=== PATIENT | male | born 1935 | race Caucasian/White ===

== ENCOUNTER 2020-06-07 13:44 | Outpatient (CLI) | payer MEDICARE, SELFPAY ==
--- NOTE | 2020-06-07 13:50 | MR_ITS ---
WS: [id number] MRI BRAIN WITH AND WITHOUT CONTRAST HISTORY: PITUITARY MACROADENOMA COMPARISON: 09/18/2016 TECHNIQUE: Multiplanar imaging performed through the brain with Prohance 16 ml's IV. No acute infarct. Scattered periventricular white matter signal abnormalities and more confluent natalia ventricular white matter signal abnormalities. No acute infarct. No hemorrhage. No susceptibility artifacts or prior lacunar infarcts. Mild enlargement of the ventricles on the basis of atrophy. There is a heterogeneously enhancing soft tissue mass which has been previously described arising fro m the pituitary gland and sella turcica. Heterogeneously enhancing mass extends 2.2 cm in superior in ferior diameter from the sella turcica. Mass measures transversely by 2.0 cm and anterior posterior b y 2.0 cm. Slightly lobulated mass extends higher on the RIGHT than the LEFT. Mass abuts the undersurf shana of the RIGHT optic chiasm. There is contact on the carotid arteries through the cavernous sinuses . No significant progression in size of this mass. Mass also abuts the infundibulum and displaces it slightly to the LEFT and superiorly. Visualized posterior fossa and brainstem are also normal. No additional masses. Dural venous sinuses are normal. Paranasal sinuses: Well aerated with no significant disease. Mastoid air cells: Normal. Calvarium and scalp: Normal. MR/MR head wo/w con [id number] IMPRESSION: 1. 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 Ther e is continued contact on the optic chiasm, infundibulum and the carotid arteri es. No compression or further encasement of the carotid arteries. 2. Moderate chronic microvascular ischemic changes and atrophy are stable.
== END 2020-06-07 13:45 | disposition home or self-care (01) ==
LOC: RADWPI 13:48
PROVIDERS: Family Provider Family Medicine; PCP Family Medicine; Visit Provider Family Medicine
DX: D35.2 Benign neoplasm of pituitary gland (principal); I67.82 Cerebral ischemia
CPT/HCPCS: 70553; A9579

== ENCOUNTER 2020-06-11 13:24 | Emergency (ER) | payer OTHER, SELFPAY ==
[2020-06-11 13:30] VITALS: BP 129/68; PULSE 94; RESP 18; TEMP 36.8; O2SAT 94; BMI 23.6
--- NOTE | 2020-06-11 13:31 | ECG_ITS ---
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 Measurements Intervals [place] Rate: 86 P: 45 TN: 140 QRS: 9 QRSD: 82 T: 28 QT: 366 QTc: 440 Interpretive Statements SINUS RHYTHM Compared to ECG 11/09/2017 19:57:47 ST (T wave) deviation no longer present Electronically Signed On 06-11-2020 14:05:46 CDT by Petey Alberto M.D. [email or web address]/[id number] f
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
[2020-06-11 13:50] VITALS: BP 105/59; PULSE 86; RESP 18; O2SAT 93
[2020-06-11 13:58] LABS: Basophils # 0.1 10^3/uL (0.0-0.1); Basophils % 0.7 %; Eosinophils # 0.1 10^3/uL (0.0-0.8); Eosinophils % 0.9 %; Hematocrit 40.6 % (42.0-52.0); Hemoglobin 13.2 g/dL (11.7-16.6); Lymphocytes # 1.3 10^3/uL (0.8-4.8); Lymphocytes % 16.9 %; Mean Corpuscular HGB Conc 32.5 g/dL (30.0-36.0); Mean Corpuscular Hemoglobin 28.4 pg (28.0-34.0); Mean Corpuscular Volume 87.3 fL (80-94); Mean Platelet Volume 10.3 fL (7.4-10.4); Monocytes # 0.7 10^3/uL (0.2-0.9); Monocytes % 8.9 %; Neutrophils # 5.45 10^3/uL (1.8-7.7); Neutrophils % 72.3 %; Nucleated Red Blood Cells % 0 %; Platelet Count 268 10^3/cmm (130-400); Red Blood Count 4.65 10^6/uL (4.1-5.3); Red Cell Distribution Width 13.3 % (12.1-15.1); White Blood Count 7.5 10^3/uL (4.0-10.0)
[2020-06-11 14:24] VITALS: BP 105/59; PULSE 86; RESP 18; TEMP 36.8; O2SAT 93
== END 2020-06-11 14:24 | disposition home or self-care (01) ==
PROVIDERS: Emergency Provider Emergency Medicine; PCP Family Medicine
DX: R55 Syncope and collapse (principal); S41.112A Laceration without foreign body of left upper arm, initial encounter; V49.40XA Driver injured in collision with unspecified motor vehicles in traffic accident, initial encounter
CPT/HCPCS: 12345; 85025; 93005; 93010; 99282; 99283

== ENCOUNTER → 2020-06-16 13:27 | Outpatient (BNVA) | payer MEDICARE, SELFPAY | PROVIDERS: PCP Family Medicine; Visit Provider Dermatology | DX: D48.9 Neoplasm of uncertain behavior, unspecified (principal); L57.0 Actinic keratosis; Z85.828 Personal history of other malignant neoplasm of skin; L82.1 Other seborrheic keratosis | CPT/HCPCS: 11102; 17000; 17003; 88304; 88305; 99203 ==

== ENCOUNTER → 2020-06-18 12:37 | Outpatient (BNVA) | payer MEDICARE, OTHER, SELFPAY | PROVIDERS: PCP Family Medicine; Referring Provider Family Medicine; Visit Provider Internal Medicine | DX: D35.2 Benign neoplasm of pituitary gland (principal) | CPT/HCPCS: 99203 ==

== ENCOUNTER → 2020-06-30 08:00 | Outpatient (BNVA) | payer MEDICARE, OTHER, SELFPAY | PROVIDERS: PCP Family Medicine; Visit Provider Dermatology | DX: C44.622 Squamous cell carcinoma of skin of right upper limb, including shoulder (principal); L57.0 Actinic keratosis | CPT/HCPCS: 11626; 12042; 17000; 17003; 88304; 88305; 88341; 88342; 99213 ==

== ENCOUNTER → 2020-07-14 13:34 | Outpatient (BNVA) | payer MEDICARE, OTHER, SELFPAY | PROVIDERS: PCP Family Medicine; Visit Provider Dermatology | DX: Z85.828 Personal history of other malignant neoplasm of skin (principal); L57.0 Actinic keratosis; L90.5 Scar conditions and fibrosis of skin; Z48.02 Encounter for removal of sutures | CPT/HCPCS: 17000; 17003; 99213 ==

== ENCOUNTER → 2020-07-22 10:47 | Outpatient (BNVA) | payer MEDICARE, SELFPAY | PROVIDERS: PCP Family Medicine; Referring Provider Family Medicine; Visit Provider Specialist | DX: D35.2 Benign neoplasm of pituitary gland (principal); G47.10 Hypersomnia, unspecified; K11.7 Disturbances of salivary secretion | CPT/HCPCS: 99203 ==

== ENCOUNTER 2020-10-21 01:57 | Inpatient (IN) | payer MEDICARE, SELFPAY ==
[2020-10-21] VITALS (35 sets, daily range): BP systolic 51–154; BP diastolic 32–89; PULSE 57–96; RESP 13–35; TEMP 36.4–36.9; O2SAT 85–98; BMI 25.7
--- NOTE | 2020-10-21 02:00 | XRR_ITS ---
PROCEDURE INFORMATION: Exam: XR Left Shoulder Exam date and time: 10/21/2020 2:01 AM Age: 85 years old Clinical indication: Injury or trauma; Fall; Blunt trauma (contusions or hematomas); Left; Patient HX: HX of prior shoulder FX TECHNIQUE: Imaging protocol: XR Left shoulder. Views: 2 or more views. COMPARISON: CR Shoulder 2+ views LEFT* [id number] 01/08/2019 9:48 AM FINDINGS: Bones/joints: Osteopenia. Minor degenerative change of thoracic spine. Displaced fracture of the surgical neck of the proximal humerus with complete displacement of distal fracture fragment medially and anteriorly with partial overriding. Mild angulation deformity at the fracture. The humeral head remains positioned at the glenoid rim. Mild degenerative arthritis of the glenohumeral joint. Acromioclavicular joint is maintained. Fracture deformity of the posterolateral left 5th and 6th ribs probably remote. Lungs: Minor infiltrate or atelectasis left lower lung. Soft tissues: Normal. XR/XR shoulder LT min 2V* [id number] IMPRESSION: 1. Acute prominently displaced surgical neck fracture proximal left humerus. 2. Osteopenia. 3. Minor opacity of left lower lung. This could reflect small infiltrate or atelectasis.
--- NOTE | 2020-10-21 02:01 | W.ED.FALL ---
HPI - Fall General: Chief Complaint: Fall Stated Complaint: fall Time Seen by Provider: 10/21/20 02:00 Source: patient and EMS Mode of arrival: EMS Limitations: no limitations History of Present Illness: HPI Narrative: 85-year-old male states that he tripped and fell tonight landing on his left side. He states his left shoulder pain that is an 8 out of 10. He denies hitting his head denies any other injuries. Patient denies any hip pain. Patient states he is unable to move that arm. States the pain is worse with palpation improved with rest. complaint: fall Onset (ago): hour(s) Fall from: standing Associated symptoms-after fall: Denies abdominal pain, chest pain or headache(s) Review of Systems Const: Denies: fever(s), chills, body aches or change in appetite Eyes: Denies: blurry vision or eye discomfort ENMT: Denies: throat pain or dental pain Card: Denies: chest pain Resp: Denies: dyspnea GI: Denies: abdominal pain, nausea, vomiting or diarrhea : Denies: dysuria Musc: Reports: joint pain Skin/Breast: Denies: rash Neuro: Denies: headache(s) Psych: Denies: depression Handy/Lymph: Denies: easy bruising All/Imm: Denies: urticaria PFSH ED PFSH: Medical History Anxiety BPH with obstruction/lower urinary tract symptoms History of nonmelanoma skin cancer HTN (hypertension) Hyperlipidemia Pituitary adenoma No visual symptoms however it is compressing on optic chiasm Retention of urine Xerostomia Surgical History History of cholecystectomy History of left hip replacement Family History Mother , BREAST Cancer Father , LUNG Cancer Social History Smoking and tobacco status: former smoker Alcohol intake: never Lives independently: Yes Marital status: Single Current occupational status: retired History of recent travel: No Physical Exam Const: COMMON NORMALS: no acute distress, patient oriented x3 and healthy appearing HENMT: COMMON NORMALS: normocephalic and atraumatic HEAD & SCALP: normocephalic and atraumatic Eye: COMMON NORMALS: Equal, round and reactive pupils present and EOMs intact bilaterally PUPIL: Yes Equal, round and reactive pupils present Neck/C-Spine: COMMON NORMALS: full ROM and supple Chest: COMMONS NORMALS: normal inspection of the chest and normal palpation of entire chest wall Resp: COMMON NORMALS: normal respiratory effort, No retractions, No use of accessory muscles and clear to auscultation bilaterally AUSCULTATION: clear to auscultation bilaterally Cardio: COMMON NORMALS: regular rate, regular rhythm and No murmurs present (Cardio) RATE: regular rate RHYTHM: regular rhythm GI: COMMON NORMALS: Normal to inspection, nondistended, normoactive bowel sounds present, Soft to palpation, non-tender and no masses PALPATION: Yes Soft to palpation Extremity: NARRATIVE EXTREMITY EXAM: tenderness over left shoulder Neuro: COMMON NORMALS: patient oriented x3, moves all extremities and no focal motor deficits Psych: COMMON NORMALS: mental status grossly normal, Normal thought process present and cooperative THOUGHT PROCESS: Normal thought process present Skin: COMMON NORMALS: no rashes or lesions noted and no wounds GENERAL SKIN EXAM: no rashes or lesions noted Course Reevaluation(s): Reevaluation #1: During patient's placement into a shoulder immobilizer he had a syncopal event likely a vagal event. His blood pressure dropped into the 50s and heart rate dropped into the 40s. Patient was laid flat and given some IV fluids and blood pressure is coming up gradually heart rate is coming up as well. I believe this is likely a vagal response due to pain Time: 04:35 Vital Signs: Vital signs: Vital Signs Temperature 98.3 F 10/21/20 01:58 Pulse Rate 86 10/21/20 05:25 Respiratory Rate 15 10/21/20 05:25 Blood Pressure 101/63 10/21/20 05:25 Pulse Oximetry 93 10/21/20 05:25 MDM - Fall MDM Narrative: Medical decision making narrative: Patient presents here with humerus fracture from a fall. Patient also states that he is unable to take care of himself and lives home alone. He is also hypoxic here requiring oxygen. X-ray shows no obvious pneumonia and his Covid test was negative. Spoke to hospitalist will admit for his hypoxia along with a humerus fracture. Lab Data: Labs: Lab Results 10/21/20 10/21/20 10/21/20 Range/Units 04:06 04:06 04:06 WBC 12.5 H (4.0-10.0) 10^3/ uL RBC 4.45 (4.1-5.3) 10^6/u L Hgb 12.2 (11.7-16.6) g/dL Hct 37.6 L (42.0-52.0) % MCV 84.5 (80-94) fL MCH 27.4 L (28.0-34.0) pg MCHC 32.4 (30.0-36.0) g/dL RDW 13.3 (12.1-15.1) % Plt Count 243 (130-400) 10^3/c mm MPV 10.0 (7.4-10.4) fL Neut % (Auto) 87.3 % Lymph % (Auto) 5.7 % [place] % (Auto) 5.9 % Eos % (Auto) 0.3 % Baso % (Auto) 0.3 % Neut # (Auto) 10.94 H (1.8-7.7) 10^3/u L Lymph # (Auto) 0.7 L (0.8-4.8) 10^3/u L [place] # (Auto) 0.7 (0.2-0.9) 10^3/u L Eos # (Auto) 0.0 (0.0-0.8) 10^3/u L Baso # (Auto) 0.0 (0.0-0.1) 10^3/u L Nucleated RBC % (a uto) 0 % Nucleated RBCs # 0.0 /100WBC PT 13.70 (12.1-14.9) SECO NDS INR 1.02 (0.8-1.2) Sodium 131 L (136-145) mmol/L Potassium 3.1 L (3.5-5.1) mmol/L Chloride 93 L (98-107) mmol/L Carbon Dioxide 30 H (22-29) mmol/L Anion Gap 11.1 (5-19) BUN 15 (8-23) mg/dL Creatinine 0.6 L (0.7-1.2) mg/dL GFR Calculation Not Reportable Glucose 133 H (65-115) mg/dL POC Glucose (70-110) mg/dL Calculated Osmolal ity 275 L (285-295) mOsm/k g Calcium 9.5 (8.5-10.5) mg/dL Total Bilirubin 0.4 (0.15-1.2) mg/dL AST 27 (0-40) U/L ALT 20 (0-41) U/L Alkaline Phosphata se 49 (40-130) IU/L NT-Pro-B Natriuret Pep 428 (0-450) pg/mL Total Protein 6.3 L (6.6-8.7) g/dL Albumin 3.6 (3.5-5.2) g/dL Globulin 2.7 (1.3-4.6) g/dL SARS-CoV-2 Ag (Rap id) (Negative) 10/21/20 10/21/20 Range/Units 04:06 04:31 WBC (4.0-10.0) 10^3/ uL RBC (4.1-5.3) 10^6/u L Hgb (11.7-16.6) g/dL Hct (42.0-52.0) % MCV (80-94) fL MCH (28.0-34.0) pg MCHC (30.0-36.0) g/dL RDW (12.1-15.1) % Plt Count (130-400) 10^3/c mm MPV (7.4-10.4) fL Neut % (Auto) % Lymph % (Auto) % [place] % (Auto) % Eos % (Auto) % Baso % (Auto) % Neut # (Auto) (1.8-7.7) 10^3/u L Lymph # (Auto) (0.8-4.8) 10^3/u L [place] # (Auto) (0.2-0.9) 10^3/u L Eos # (Auto) (0.0-0.8) 10^3/u L Baso # (Auto) (0.0-0.1) 10^3/u L Nucleated RBC % (a uto) % Nucleated RBCs # /100WBC PT (12.1-14.9) SECO NDS INR (0.8-1.2) Sodium (136-145) mmol/L Potassium (3.5-5.1) mmol/L Chloride (98-107) mmol/L Carbon Dioxide (22-29) mmol/L Anion Gap (5-19) BUN (8-23) mg/dL Creatinine (0.7-1.2) mg/dL GFR Calculation Glucose (65-115) mg/dL POC Glucose 131 H (70-110) mg/dL Calculated Osmolal ity (285-295) mOsm/k g Calcium (8.5-10.5) mg/dL Total Bilirubin (0.15-1.2) mg/dL AST (0-40) U/L ALT (0-41) U/L Alkaline Phosphata se (40-130) IU/L NT-Pro-B Natriuret Pep (0-450) pg/mL Total Protein (6.6-8.7) g/dL Albumin (3.5-5.2) g/dL Globulin (1.3-4.6) g/dL SARS-CoV-2 Ag (Rap id) Negative (Negative) Imaging Data^: CT Head: Attestation: I personally reviewed and interpreted this imaging study as follows: Radiologist's impression: [address] [address] [address] Scan Report Signed Patient: Walter Rene Unit #: [id number] : 1935 Age/Sex: 85 / M ADM Date: 10/21/20 Loc: ER Room/Bed: Attending Dr: Ordering Provider/Ordering MD: Rupa Cosme MD Date of Service: 10/21/20 Procedure(s): CT head wo con* [id number] Accession Number(s): [id number] Report Number: [id number] PROCEDURE INFORMATION: Exam: CT Head Without Contrast Exam date and time: 10/21/2020 5:04 AM Age: 85 years old Clinical indication: Visual disturbance; Patient HX: Patient C/O fuzzy vision. Sudden onset of bradycardia with hypotension while in er. Additional info: Fall. TECHNIQUE: Imaging protocol: Computed tomography of the head without contrast. Radiation optimization: All CT scans at this facility use at least one of these dose optimization techniques: automated exposure control; mA and/or kV adjustment per patient size (includes targeted exams where dose is matched to clinical indication); or iterative reconstruction. COMPARISON: CT head wo con* [id number] 11/09/2017 4:17 PM RADIATION DOSE METRICS: Total DLP (mGy-cm): 968.69 FINDINGS: Brain: There is moderate hypodensity of the periventricular white matter. This is nonspecific, but a likely cause is small vessel ischemic disease. There is a 2.2 cm x 1.7 cm sellar mass on series 2, image 24. This is consistent with a pituitary macroadenoma as on prior report. Size is similar to prior study. Thinning of the anterior and posterior aspects of the sella turcica on the left side, similar to prior study. No abnormal intra-axial or extra-axial fluid collections are identified. There is no midline shift. No intracranial hemorrhage identified. Ventricles: The ventricles and sulci are moderately and diffusely prominent, compatible with global brain volume loss. Bones/joints: Thinning of the anterior and posterior aspects of the sella turcica on the left side, similar to prior study. Sinuses: Visualized sinuses are unremarkable. No fluid levels. Mastoid air cells: Visualized mastoid air cells are well aerated. Soft tissues: Unremarkable. CT/CT head wo con* [id number] IMPRESSION: 1. No intracranial hemorrhage identified. 2. Sellar mass, consistent with pituitary macroadenoma, similar to prior study. EKG Data^: EKG 1: Attestation: I personally reviewed and interpreted this EKG as follows: EKG interpretation date: 10/21/20 EKG interpretation time: 03:47 Interpretation: nsr hr [address] or t wave abnormalities qrs 88 qtc 421 Discharge Plan Discharge Patient Disposition: Admitted As Inpatient Clinical Impression: Hypoxia Fracture, humerus Qualifiers: Encounter type: initial encounter Humerus Location: proximal Fracture type: closed Fracture alignment: displaced Laterality: left Fall Qualifiers: Encounter type: initial encounter Qualified Code(s): W19.XXXA - Unspecified fall, initial encounter Condition: Stable Discharge Diet: Advance as tolerated Discharge Activity: Resume usual activity Coding Level of Care Code ED Splitting Machine Tender for Chg Fwd Exam Comprehensive
--- NOTE | 2020-10-21 02:05 | PC.NURSE ---
Noted bed bug crawled out of pt's white t shirt. Notified provider. collected and hold for ext
--- NOTE | 2020-10-21 02:17 | PC.NURSE ---
Pt offered hydrocodone for pain relief. Insured that pt understood that medication was to treat pain. Pt states, Pain pill? No, I don't need that. CK RN and Dr Cosme notified of pt refusal and medication returned.
--- NOTE | 2020-10-21 02:57 | XRR_ITS ---
PROCEDURE INFORMATION: Exam: XR Chest, 1 View Exam date and time: 10/21/2020 3:43 AM Age: 85 years old Clinical indication: Shortness of breath; Patient HX: Hpoxic, left shoulder FX; Additional info: SOB TECHNIQUE: Imaging protocol: XR of the chest Views: 1 view. COMPARISON: CR Chest 2 views* [id number] 11/11/2017 8:03 AM FINDINGS: Lungs: Minor retrocardiac left lower lung atelectasis, scarring or small infiltrate. Minor interstitial opacity of right upper lobe. Possible partial superimposed skin fold at the right upper chest. Pleural space: Unremarkable. No pleural effusion. No pneumothorax. Heart/Mediastinum: Unremarkable. No cardiomegaly. Bones/joints: Osteopenia with displaced fracture of the proximal left humerus. XR/XR chest 1V portable [id number] IMPRESSION: 1. Minor interstitial opacity of right upper lobe versus partial superimposed soft tissue density. 2. Retrocardiac left lower lung small infiltrate, atelectasis or scarring. 3. Displaced fracture deformity proximal left humerus.
--- NOTE | 2020-10-21 02:58 | ECG_ITS ---
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 Measurements Intervals [place] Rate: 91 P: 99 MA: 160 QRS: 3 QRSD: 88 T: 29 QT: 372 QTc: 460 Interpretive Statements SINUS RHYTHM NONSPECIFIC ST & T-WAVE ABNORMALITY Compared to ECG 06/11/2020 13:41:12 T-wave abnormality now present Electronically Signed On 10-23-2020 16:45:01 HABILITATIVE INTERVENTIONIST by Petey Alberto M.D. [id number] f
[2020-10-21] MEDS: tetanus-dipt-pertussis 0.5 mL SDV IM (04:17)
[2020-10-21 04:28] LABS: Basophils % 0.3 %; Eosinophils % 0.3 %; Hematocrit 37.6 % (42.0-52.0); Hemoglobin 12.2 g/dL (11.7-16.6); Lymphocytes # 0.7 10^3/uL (0.8-4.8); Lymphocytes % 5.7 %; Mean Corpuscular HGB Conc 32.4 g/dL (30.0-36.0); Mean Corpuscular Hemoglobin 27.4 pg (28.0-34.0); Mean Corpuscular Volume 84.5 fL (80-94); Monocytes # 0.7 10^3/uL (0.2-0.9); Monocytes % 5.9 %; Neutrophils # 10.94 10^3/uL (1.8-7.7); Neutrophils % 87.3 %; Nucleated Red Blood Cells % 0 %; Platelet Count 243 10^3/cmm (130-400); Red Blood Count 4.45 10^6/uL (4.1-5.3); Red Cell Distribution Width 13.3 % (12.1-15.1); White Blood Count 12.5 10^3/uL (4.0-10.0)
--- NOTE | 2020-10-21 04:30 | PC.NURSE ---
with placement of immobilzer, noted decrease verbal conversation and pt stated my eyes are fading . Pt eyes closed and noted decrease HR with SP02 91% on RA. Pt continued stated i want to be euthanized Notified provider
[2020-10-21 04:36] LABS: Glucose Point of Care 131 mg/dL (70-110)
[2020-10-21 04:50] LABS: SARS Covid-2 Antigen Negative (Negative)
[2020-10-21 04:52] LABS: INR 1.02 (0.8-1.2)
[2020-10-21 04:53] LABS: Alanine Aminotransferase 20 U/L (0-41); Albumin Level 3.6 g/dL (3.5-5.2); Alkaline Phosphatase 49 IU/L (40-130); Anion Gap 11.1 (5-19); Aspartate Amino Transferase 27 U/L (0-40); Blood Urea Nitrogen 15 mg/dL (8-23); Calcium 9.5 mg/dL (8.5-10.5); Carbon Dioxide 30 mmol/L (22-29); Chloride 93 mmol/L (98-107); Globulin 2.7 g/dL (1.3-4.6); Glucose 133 mg/dL (65-115); NT Pro B Type Natriuretic Pept 428 pg/mL (0-450); Osmolality Calculated 275 mOsm/kg (285-295); Potassium 3.1 mmol/L (3.5-5.1); Sodium 131 mmol/L (136-145); Total Bilirubin 0.4 mg/dL (0.15-1.2); Total Protein 6.3 g/dL (6.6-8.7)
[2020-10-21] MEDS: sodium chloride 0.9% 1,000 ML 999 ML IV (04:56)
--- NOTE | 2020-10-21 05:03 | CTR_ITS ---
PROCEDURE INFORMATION: Exam: CT Head Without Contrast Exam date and time: 10/21/2020 5:04 AM Age: 85 years old Clinical indication: Visual disturbance; Patient HX: Patient C/O fuzzy vision. Sudden onset of bradycardia with hypotension while in er. Additional info: Fall. TECHNIQUE: Imaging protocol: Computed tomography of the head without contrast. Radiation optimization: All CT scans at this facility use at least one of these dose optimization techniques: automated exposure control; mA and/or kV adjustment per patient size (includes targeted exams where dose is matched to clinical indication); or iterative reconstruction. COMPARISON: CT head wo con* [id number] 11/09/2017 4:17 PM RADIATION DOSE METRICS: Total DLP (mGy-cm): 968.69 FINDINGS: Brain: There is moderate hypodensity of the periventricular white matter. This is nonspecific, but a likely cause is small vessel ischemic disease. There is a 2.2 cm x 1.7 cm sellar mass on series 2, image 24. This is consistent with a pituitary macroadenoma as on prior report. Size is similar to prior study. Thinning of the anterior and posterior aspects of the sella turcica on the left side, similar to prior study. No abnormal intra-axial or extra-axial fluid collections are identified. There is no midline shift. No intracranial hemorrhage identified. Ventricles: The ventricles and sulci are moderately and diffusely prominent, compatible with global brain volume loss. Bones/joints: Thinning of the anterior and posterior aspects of the sella turcica on the left side, similar to prior study. Sinuses: Visualized sinuses are unremarkable. No fluid levels. Mastoid air cells: Visualized mastoid air cells are well aerated. Soft tissues: Unremarkable. CT/CT head wo con* [id number] IMPRESSION: 1. No intracranial hemorrhage identified. 2. Sellar mass, consistent with pituitary macroadenoma, similar to prior study. Radiation Dose CTDIVOL = (mGy): DLP = 968.69 (mGy-cm)
--- NOTE | 2020-10-21 05:21 | P.HP_ITS ---
Providers/Chief Complaint Primary Care Provider: Ghanshyam Martinez MD Chief Complaint: fall History of Present Illness Walter Rene is a 85 year old male who has history of pituitary macroadenoma, BPH, xerostomia presented to the hospital after sustaining a fall. Patient is stating that he lives alone manages his daily activities on his own without any difficulties has had appointment with Dr. Dee Khan and dermatology for his chronic conditions. Dr. Price is recommending conservative management for macroadenoma pituitary gland, he went for cryotherapy of actinic keratosis, urology increase his tamsulosin dose for obstructive uropathy along finasteride. Patient is stating that last night when he woke up, tried to go to the bathroom, as soon as he stood up he fell on the ground, he denied seizure-like activities, chest pain, blurry vision, shortness of breath seizure-like activities. He did not lose consciousness. He started experiencing excruciating pain in the left arm was not able to get himself up, called EMS and came to the ER. Diagnostics in the ER revealed left humeral neck fracture. Patient lives alone and not able to take care of himself, in the ER he has been requiring 2 L nasal cannula for hypoxia, I have requested D-dimer to rule out PE. Hypokalemia noted. EKG shows a sinus rhythm no QTC prolongation Review of Systems Const: Reports: body aches, fatigue and malaise; Denies: fever(s) or chills Eyes: Reports: blurry vision; Denies: change in vision ENMT: Denies: throat pain Card: Denies: chest pain Resp: Denies: dyspnea GI: Denies: abdominal pain : Reports: difficulty urinating, urinary hesitancy and nocturia; Denies: flank pain Musc: Reports: extremity pain, joint stiffness, limited range of motion and mu scle weakness Skin/Breast: Reports: lesions Neuro: Reports: headache(s) Psych: Denies: anxiety or difficulty concentrating Endo: Denies: polyuria Handy/Lymph: Reports: easy bruising All/Imm: Denies: urticaria Medications/Allergies Home Medications Medication Instructions Recorded Confirmed Last Taken Type amlodipine 5 mg tablet 5 mg PO DAILY 06/16/20 10/21/20 10/20/20 History lisinopril 5 mg tablet 40 mg PO DAILY 06/16/20 10/21/20 10/20/20 History tamsulosin 0.4 mg capsule 0.4 mg PO DAILY 06/16/20 10/21/20 10/20/20 History finasteride 5 mg tablet 5 mg PO DAILY 06/18/20 10/21/20 10/20/20 History hydrochlorothiazide 25 mg tablet 25 mg PO DAILY 06/18/20 10/21/20 10/20/20 History cholecalciferol (vitamin D3) 25 25 mcg PO DAILY 07/22/20 10/21/20 10/20/20 History mcg (1,000 unit) capsule melatonin 10 mg capsule 10 mg PO DAILY 10/05/20 10/21/20 Unknown History saw palmetto 450 mg capsule 900 mg PO BID cap 10/05/20 10/21/20 10/20/20 History acetaminophen 1,000 mg PO Q4-5H PRN 10/21/20 10/21/20 Unknown History docusate sodium 1 tab PO DAILY 10/21/20 10/21/20 10/20/20 History famotidine 1 tab PO BID 10/21/20 10/21/20 10/20/20 History hydrocodone-acetaminophen [[place]] 1 tab PO Q6H PRN #14 tab 10/21/20 Unknown Rx vit c-ascorbate Ca-ascorb sod 1 tab PO DAILY 10/21/20 10/21/20 10/20/20 History vitamin [id number] acid 1 tab PO DAILY 10/21/20 10/21/20 10/20/20 History Allergies Allergy/AdvReac Type Severity Reaction Status Date / Time NSAIDS (Non-Steroidal AdvReac ADR-Abdominal Verified 10/18/20 13:27 Anti-Inflamma Pain PFSH Acute PFSH: Medical History Anxiety BPH with obstruction/lower urinary tract symptoms History of nonmelanoma skin cancer HTN (hypertension) Hyperlipidemia Pituitary adenoma No visual symptoms however it is compressing on optic chiasm Retention of urine Xerostomia Surgical History History of cholecystectomy History of left hip replacement Family History Mother , BREAST Cancer Father , LUNG Cancer Social History Smoking and tobacco status: former smoker Alcohol intake: never Lives independently: Yes Marital status: Single Current occupational status: retired History of recent travel: No Vitals/I&O/Wt Last Vital Signs Temp 98.3 F 10/21/20 01:58 Pulse 72 10/21/20 04:50 Resp 22 H 10/21/20 04:50 BP 79/46 10/21/20 04:50 Pulse Ox 91 10/21/20 04:53 Weight last 48 hrs Weight 70.307 kg Physical Exam Narrative: EXAM NARRATIVE: Very pleasant elderly male Looks slightly dehydrated Awake alert oriented x3 GCS 15 No neurological deficit Has good memory Able to tell me HPI, has good insight S1, S2 sinus rhythm no sign of heart failure Abdomen soft bowel sound present Lower extremity multiple petechiae macular rash Skin is showing actinic keratosis Bilateral breath sounds without adventitious rhonchi or crackles Left arm in sling, tender on any kind of movement Limited range of motion of left arm Currently on 2 L nasal cannula saturating 93% Jennings catheter draining clear urine Data : 10/21/20 04:06 10/21/20 04:06 A&P Assessment and plan (1) Fracture, humerus: Status: Acute Qualifiers: Encounter type: initial encounter Fracture alignment: displaced Fracture type: closed Humerus Location: proximal Laterality: left (2) Fall: Status: Acute Qualifiers: Encounter type: initial encounter Qualified Code(s): W19.XXXA - Unspecified fall, initial encounter (3) Hypoxia: Status: Acute (4) BPH with obstruction/lower urinary tract symptoms: Status: Acute (5) Hypoxia: Status: Acute Additional A&P Information Left humeral neck fracture His fall is most likely secondary to orthostasis with recent increase in tamsulosin for BPH Orthopedic surgery consult I will keep him n.p.o. in case he will go for any surgical intervention Morphine for analgesia Social service consult for long-term penitentiary place as patient lives alone and will not be able to take care of himself Acute hypoxic respiratory failure Rule out PE requested D-dimer currently saturating well on 2 L nasal cannula This could very well be secondary to hypoventilation due to left humeral fracture pain Chest x-ray not showing any pneumonia Goals of care status: Discussed with the patient he is DNR/DNI, patient stated he does not want to be on any kind of life support or tubing his children live in [place], he would like his son Kael to be notified DVT prophylaxis SCDs N.p.o. for now advance diet if he is not a surgical candidate Attestations Medical Necessity Statement*: Anticipating stay in the hospital cross more than 2 midnights currently he will need orthopedic evaluation for left humeral fracture, lives alone will need long-term penitentiary placement as well Time Spent in Patient Care: (>than 50% of time spent in counselling and/or direct pt care on unit) . 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
--- NOTE | 2020-10-21 05:26 | PC.NURSE ---
Pt to CT with tech/RN. Pt improved BP and HR and increased Alertness and conversation. Pt stated improved faded eyes .
--- NOTE | 2020-10-21 05:57 | PC.NURSE ---
Attempt report to [facility].
[2020-10-21] MEDS: LORazepam 0.5 mg Tablet PO (06:14)
[2020-10-21] MEDS: acetaminophen 325 mg Tablet 650 MG PO (06:14)
[2020-10-21 06:23] LABS: D Dimer >= 20.00 ug/mIFEU (0-0.59)
--- NOTE | 2020-10-21 07:01 | PC.NURSE ---
Report to [facility] No[facility]
[2020-10-21] MEDS: potassium chloride ER 20 mEq Tablet PO (09:01)
[2020-10-21 09:28] LABS: Thyroid Stimulating Hormone 1.24 uIU/mL (0.27-4.20)
[2020-10-21] MEDS: docusate sodium 100 mg Capsule PO ×2 (09:50→19:04)
[2020-10-21] MEDS: lisinopril 20 mg Tablet 40 MG PO (09:50)
[2020-10-21] MEDS: amlodipine 5 mg Tablet PO (09:50)
[2020-10-21] MEDS: famotidine 20 mg Tablet PO ×2 (09:50→19:04)
[2020-10-21] MEDS: finasteride 5 mg Tablet PO (09:50)
[2020-10-21] MEDS: hydroCHLOROthiazide 25 mg Tablet PO (09:51)
[2020-10-21] MEDS: tamsulosin 0.4 mg Capsule PO (09:51)
--- NOTE | 2020-10-21 10:05 | PC.NURSE ---
Read and agree with admission assessment and physical assessment.
--- NOTE | 2020-10-21 12:17 | PM.PN ---
Subjective Subjective: Interval history: Patient is complaining of constipation.Deny any pain in his lt hand. Vitals and labs have been reviewed. Medications: Reviewed: Yes Vitals/I&O/Wt Last Vital Signs Temp 98.3 F 10/21/20 01:58 Pulse 76 10/21/20 06:40 Resp 13 10/21/20 06:40 BP 101/63 10/21/20 06:40 Pulse Ox 91 10/21/20 06:40 Weight last 48 hrs Weight 70.307 kg Physical Exam Const: COMMON NORMALS: patient oriented x3 Resp: COMMON NORMALS: normal respiratory effort and clear to auscultation bilaterally EFFORT & INSPECTION: Yes symmetric chest movement AUSCULTATION: clear to auscultation bilaterally Cardio: COMMON NORMALS: regular rate, regular rhythm, S1 normal heart sound present, S2 normal heart sound present, No gallops present (Cardio), No murmurs present (Cardio), No rub (Cardio) and Peripheral pulses 2+ throughout RATE: regular rate RHYTHM: regular rhythm HEART SOUNDS: S1 normal heart sound present and S2 normal heart sound present PERIPHERAL PULSES: Peripheral pulses 2+ throughout GI: COMMON NORMALS: Normal to inspection, nondistended, normoactive bowel sounds present, Soft to palpation, non-tender, No hepatosplenomegaly present and no masses AUSCULTATION: Yes normoactive bowel sounds PALPATION: Yes Soft to palpation and Yes No hepatosplenomegaly present RECTAL EXAM: Yes deferred Extremity: OTHER: Proximal humerus : Mild Tenderness : No tenderness remaining ipsilateral extremity bones/joints Digits: Fully extends digits and thumb, clenched fist complete Sensation: Intact to light touch Motor exam: Flexes and extends ulnar 4 digits, extends and opposes thumb, dorsiflexes and palmarflexes wrist, flexes and extends elbow, abducts shoulder Neuro: COMMON NORMALS: patient oriented x3 Urinary Catheter Management^: Jennings: Cath Placed During This Visit: yes Urinary Catheter Date of Insertion: 10/21/20 Data : 10/21/20 04:06 10/21/20 04:06 A&P Assessment and plan (1) Fracture, humerus: Status: Acute Qualifiers: Encounter type: initial encounter Fracture alignment: displaced Fracture type: closed Humerus Location: proximal Laterality: left (2) Fall: Status: Acute Qualifiers: Encounter type: initial encounter Qualified Code(s): W19.XXXA - Unspecified fall, initial encounter (3) Hypoxia: Status: Acute (4) BPH with obstruction/lower urinary tract symptoms: Status: Acute Additional A&P Information # Left humeral neck fracture His fall is most likely secondary to orthostasis with recent increase in tamsulosin for BPH Orthopedic surgery consult: Sling Placed for 12 weeks.Repeat xary chest in 2 weeks and follow ortho as outpatient. Morphine for analgesia Social service consult for long-term longterm place as patient lives alone and will not be able to take care of himself #Chronic Constipation: Continue Miralex as as docusate. Goals of care status: Discussed with the patient he is DNR/DNI, patient stated he does not want to be on any kind of life support or tubing his children live in [place], he would like his son Kael to be notified DVT prophylaxis SCDs Attestations Medical Necessity Statement*: Patient needs to be in hospital for management of lt humerus fracture, as well as for possible placement to assisted living facility. 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
--- NOTE | 2020-10-21 13:05 | PC.PT ---
Evaluation will hold until tomorrow, patient was still in ER.
--- NOTE | 2020-10-21 14:39 | P.CONIM_ITS ---
Providers/Reason For Consult Consulting Physican/Specialty*: hospitalist Reason for Consult*: left proximal humerus fractre Attending Physician: Mark Ricketts MD Primary Care Provider: Ghanshyam Martinez MD History of Present Illness History of Present Illness Walter Rene is a 85 year old male who has history of pituitary macroadenoma, BPH, xerostomia presented to the hospital after sustaining a fall. Patient is stating that he lives alone manages his daily activities on his own without any difficulties has had appointment with Dr. Dee Khan and dermatology for his chronic conditions. Dr. Price is recommending conservative management for macroadenoma pituitary gland, he went for cryotherapy of actinic keratosis, urology increase his tamsulosin dose for obstructive uropathy along finasteride. Patient is stating that last night when he woke up, tried to go to the bathroom, as soon as he stood up he fell on the ground, he denied seizure-like activities, chest pain, blurry vision, shortness of breath seizure-like activities. He did not lose consciousness. He started experiencing excruciating pain in the left arm was not able to get himself up, called EMS and came to the ER. Diagnostics in the ER revealed left humeral neck fracture. Patient lives alone and not able to take care of himself, in the ER he has been requiring 2 L nasal cannula for hypoxia, I have requested D-dimer to rule out PE. Hypokalemia noted. EKG shows a sinus rhythm no QTC prolongation and left nondisplaced proximal humerus frature Review of Systems Narrative: General ROS: negative for weight changes, fever ENT ROS: negative for nasal congestion, drainage or bleeding, sore throat, dysphagia or ear pain Eyes: PERRL Hematological and Lymphatic ROS: negative for swollen glands or abnormal bleeding Endocrine ROS: negative for polyuria/polydpsia or new changes in weight Respiratory ROS: negative for cough, shortness of breath, or wheezing Cardiovascular ROS: negative for chest pain or dyspnea on exertion Gastrointestinal ROS: negative for reflux, abdominal pain, change in bowel habits, or black or bloody stools Musculoskeletal ROS: negative for back pain, neck pain, or joint pain or swelling except for current problem Neurological ROS: negative for TIA or stoke symptoms Skin: no rashes Meds/Allergies Home Medications and Allergies Home Medications Medication Instructions Recorded Confirmed Last Taken Type amlodipine 5 mg tablet 5 mg PO DAILY 06/16/20 10/21/20 10/20/20 History lisinopril 5 mg tablet 40 mg PO DAILY 06/16/20 10/21/20 10/20/20 History tamsulosin 0.4 mg capsule 0.4 mg PO DAILY 06/16/20 10/21/20 10/20/20 History finasteride 5 mg tablet 5 mg PO DAILY 06/18/20 10/21/20 10/20/20 History hydrochlorothiazide 25 mg tablet 25 mg PO DAILY 06/18/20 10/21/20 10/20/20 History cholecalciferol (vitamin D3) 25 25 mcg PO DAILY 07/22/20 10/21/20 10/20/20 History mcg (1,000 unit) capsule melatonin 10 mg capsule 10 mg PO DAILY 10/05/20 10/21/20 10/20/20 History saw palmetto 450 mg capsule 900 mg PO BID cap 10/05/20 10/21/20 10/20/20 H istory acetaminophen 500 mg PO Q6H PRN 10/21/20 10/21/20 Unknown History ascorbic acid (vitamin C) 500 mg PO DAILY 10/21/20 10/21/20 10/20/20 History cyanocobalamin (vitamin B-12) 500 mcg PO DAILY 10/21/20 10/21/20 10/20/20 History [Vitamin B-12] docusate sodium See Rx Instructions .ROUTE .COMPLEX 10/21/20 10/21/20 10/20/20 History famotidine 10 mg PO BID 10/21/20 10/21/20 10/20/20 History hydrocodone-acetaminophen [[place]] 1 tab PO Q6H PRN #14 tab 10/21/20 Unknown Rx Allergies Allergy/AdvReac Type Severity Reaction Status Date / Time NSAIDS (Non-Steroidal AdvReac ADR-Abdominal Verified 10/18/20 13:27 Anti-Inflamma Pain Current Medications Current Medications Generic Name Dose Route Start Last Admin Trade Name Freq PRN Reason Stop Dose Admin Amlodipine Besylate 5 mg 10/21/20 09:00 10/21/20 09:50 Amlodipine 5 Mg Tablet PO 5 mg DAILY BRIANNA Administration Docusate Sodium 100 mg 10/21/20 09:00 10/21/20 13:43 Docusate Sodium 100 Mg Capsule PO Not Given DAILY BRIANNA Famotidine 20 mg 10/21/20 09:00 10/21/20 09:50 Famotidine 20 Mg Tablet PO 20 mg BID BRIANNA Administration Finasteride 5 mg 10/21/20 09:00 10/21/20 09:50 Finasteride 5 Mg Tablet PO 5 mg DAILY BRIANNA Administration Hydrochlorothiazide 25 mg 10/21/20 09:00 10/21/20 09:51 Hydrochlorothiazide 25 Mg Tablet PO 25 mg DAILY BRIANNA Administration Lisinopril 40 mg 10/21/20 09:30 10/21/20 09:50 Lisinopril 20 Mg Tablet PO 40 mg DAILY BRIANNA Administration Tamsulosin HCl 0.4 mg 10/21/20 09:00 10/21/20 09:51 Tamsulosin 0.4 Mg Capsule PO 0.4 mg DAILY BRIANNA Administration PFSH Acute PFSH: Medical History Anxiety BPH with obstruction/lower urinary tract symptoms History of nonmelanoma skin cancer HTN (hypertension) Hyperlipidemia Pituitary adenoma No visual symptoms however it is compressing on optic chiasm Retention of urine Xerostomia Surgical History History of cholecystectomy History of left hip replacement Family History Mother , BREAST Cancer Father , LUNG Cancer Social History Smoking and tobacco status: former smoker Alcohol intake: never Lives independently: Yes Marital status: Single Current occupational status: retired History of recent travel: No Vitals/I&O/Wt Last Vital Signs Temp 98.3 F 10/21/20 01:58 Pulse 70 10/21/20 13:09 Resp 16 10/21/20 13:09 BP 154/85 10/21/20 13:09 Pulse Ox 95 10/21/20 13:09 Weight last 48 hrs Weight 155 lb Physical Exam 2 Narrative: EXAM NARRATIVE: Skin: Intact and healthy Swelling: Minimal Tenderness location: Proximal humerus Tenderness severity: Mild No tenderness remaining ipsilateral extremity bones/joints Digits: Fully extends digits and thumb, clenched fist complete Sensation: Intact to light touch Motor exam: Flexes and extends ulnar 4 digits, extends and opposes thumb, dorsiflexes and palmarflexes wrist, flexes and extends elbow, abducts shoulder Urinary Catheter Management^: Jennings: Cath Placed During This Visit: yes Urinary Catheter Date of Insertion: 10/21/20 A&P Assessment and plan (1) Fracture, humerus: Status: Acute Qualifiers: Encounter type: initial encounter Fracture alignment: displaced Fracture type: closed Humerus Location: proximal Laterality: left (2) Proximal humerus fracture: Patient has left proximal use fracture is nondisplaced on x-ray after reviewing the x-ray. The plan will be to keep him in a sling going to take approximate 12 weeks to heal. At this point I would recheck an x-ray in the clinic in 2 weeks. He should be nonweightbearing of his left upper extremity. He can do pendulum exercises and gentle range of motion exercises of the elbow wrist and shoulder. 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
[2020-10-21] MEDS: dextrose 5%-sod chloride 0.45% 1,000 ML 30 ML IV (14:48)
[2020-10-21] MEDS: acetaminophen 500 mg Tablet PO (15:06)
[2020-10-21] MEDS: polyethylene glycol 3350 Pkt 17 gm PO (19:04)
[2020-10-22] MEDS: bisacodyl 10 mg Supp PR (00:56)
--- NOTE | 2020-10-22 01:27 | PC.NURSE ---
DULC SUPP/BM Pt kept asking for a supp for his bowels. Says cannot wait until morning. Order was obtained for Dulc Supp and pt with large BM from it.
[2020-10-22 03:53] VITALS: BP 168/66; PULSE 93; RESP 20; TEMP 36.4; O2SAT 97
--- NOTE | 2020-10-22 05:29 | PC.NURSE ---
Addendum entered by Gavi Wei LPN 10/22/20 05:31: ERROR WRONG PT Original Note: SHIFT SUMMARY Has rested well. 1:1 sitter at bedside through shift. Is very confused but pleasant. Forgets what you tell her very quickly. Ambulates to bathroom and has urinated well. Is unsteady and holds to furniture as well as nurse. Had denied pain
--- NOTE | 2020-10-22 05:31 | PC.NURSE ---
SHIFT SUMMARY Has rested well tonight. Is quite TRIBAL and is very impatient when he needs something. Left arm in immobilizer and says really only hurts when he is getting up and down. Good urine output per Jennings catheter. O2 in place at 2l per NC. IV fluids infusing at 30ml/hr rate.
[2020-10-22 05:39] LABS: Anion Gap 11.4 (5-19); Blood Urea Nitrogen 12 mg/dL (8-23); Carbon Dioxide 30 mmol/L (22-29); Chloride 95 mmol/L (98-107); Glucose 105 mg/dL (65-115); Osmolality Calculated 276 mOsm/kg (285-295); Potassium 3.4 mmol/L (3.5-5.1); Sodium 133 mmol/L (136-145)
[2020-10-22 07:09] VITALS: BP 148/68; PULSE 83; RESP 18; TEMP 36.4; O2SAT 96
--- NOTE | 2020-10-22 08:13 | CTR_ITS ---
PROCEDURE INFORMATION: Exam: CT Angiography Chest With Contrast Exam date and time: 10/22/2020 8:27 AM Age: 85 years old Clinical indication: Shortness of breath; Additional info: R/O p. E TECHNIQUE: Imaging protocol: Computed tomographic angiography of the chest with intravenous contrast. 3D rendering (Not supervised by radiologist): MIP and/or 3D reconstructed images were created by the technologist. Radiation optimization: All CT scans at this facility use at least one of these dose optimization techniques: automated exposure control; mA and/or kV adjustment per patient size (includes targeted exams where dose is matched to clinical indication); or iterative reconstruction. Contrast material: OMNI 350; Contrast volume: 95 ml; Contrast route: INTRAVENOUS (IV); COMPARISON: CR XR chest 1V portable [id number] 10/21/2020 3:59 AM RADIATION DOSE METRICS: Total DLP (mGy-cm): 549.97 FINDINGS: Pulmonary arteries: Normal. No pulmonary emboli. Aorta: Mild aortic valvular calcification is present. Moderate aortic arch, branch, and descending thoracic aortic atherosclerotic calcification without ectasia. Lungs: Right lower lobe calcified pulmonary parenchymal granuloma. Pleural space: No pneumothorax. No pleural effusion. Heart: Atherosclerotic coronary calcifications are noted involving the LAD and LCx coronary arteries. Mediastinal space: Right hilar granulomatous graham calcifications are present. Right hilar granulomatous graham calcifications are present. Lymph nodes: No enlarged lymph nodes. Liver: The liver demonstrates several small calcifications consistent with healed granulomatous disease. Nonspecific posterosuperior right lobe segment 7 hepatic 12.2 mm hypodensity. Spleen: The spleen demonstrates several small calcifications consistent with healed granulomatous disease. Adrenals: Right adrenal gland 4.0 cm low attenuation nodule (-1.1 Hounsfield units). Bones/joints: Diffuse osteopenia. Degenerative disk disease is present at mid-thoracic spine disk levels. Chronic healed right 4th through 8th lateral rib fractures. Chronic nonunion right lateral 9th rib fracture. Left 1st-2nd rib synostosis Chronic healed left 4th through 10th rib fractures. Moderate chronic T12 vertebral body compression deformity. Comminuted, moderately displaced left proximal humeral metaphyseal-metadiaphyseal recent fracture. Soft tissues: Unremarkable. Other findings: Streak artifact is present from the patient's arms at the side. CT/CT angio chest PE protcl [id number] IMPRESSION: 1. No pulmonary embolism identified. 2. Coronary atherosclerosis. 3. Comminuted, moderately displaced left proximal humeral metaphyseal-metadiaphyseal recent fracture. 4. Nonspecific hepatic hypodensity. Comparison with prior studies recommended, if available. Otherwise followup may be helpful. 5. Right adrenal lipomatous adenoma. Radiation Dose CTDIVOL = (mGy): DLP = 549.97 (mGy-cm)
[2020-10-22 08:23] LABS: Basophils % 0.3 %; Eosinophils # 0.1 10^3/uL (0.0-0.8); Eosinophils % 0.6 %; Hematocrit 33.2 % (42.0-52.0); Hemoglobin 10.6 g/dL (11.7-16.6); Lymphocytes # 0.7 10^3/uL (0.8-4.8); Mean Corpuscular HGB Conc 31.9 g/dL (30.0-36.0); Mean Corpuscular Hemoglobin 27.5 pg (28.0-34.0); Mean Platelet Volume 10.7 fL (7.4-10.4); Monocytes # 0.7 10^3/uL (0.2-0.9); Monocytes % 6.7 %; Neutrophils # 8.34 10^3/uL (1.8-7.7); Nucleated Red Blood Cells % 0 %; Platelet Count 197 10^3/cmm (130-400); Red Blood Count 3.86 10^6/uL (4.1-5.3); Red Cell Distribution Width 13.6 % (12.1-15.1); White Blood Count 9.8 10^3/uL (4.0-10.0)
[2020-10-22] MEDS: docusate sodium 100 mg Capsule PO ×3 (09:02→17:40)
[2020-10-22] MEDS: finasteride 5 mg Tablet PO (09:02)
[2020-10-22] MEDS: famotidine 20 mg Tablet PO ×2 (09:02→17:40)
[2020-10-22] MEDS: tamsulosin 0.4 mg Capsule PO (09:02)
[2020-10-22] MEDS: hydroCHLOROthiazide 25 mg Tablet PO (09:02)
[2020-10-22] MEDS: lisinopril 20 mg Tablet 40 MG PO (09:02)
[2020-10-22] MEDS: amlodipine 5 mg Tablet PO (09:03)
[2020-10-22] MEDS: polyethylene glycol 3350 Pkt 17 gm PO ×2 (09:03→17:40)
[2020-10-22] MEDS: iohexol 350 mg/mL 100 mL Btl IV (09:08)
--- NOTE | 2020-10-22 09:33 | PC.CHAP ---
Pastoral Care Encounter/Spiritual Assessment Type of Contact [] Declined conveyor line battery charger visit [] Patient/Family/Request visit [] Outpatient visit [] Follow-up visit [] Physician referral [] Code/Alert [x] Routine visit [] Staff referral [] Actively dying [] Patient sleeping [] Family support [] [] Out of room [] Palliative care [] [] Receiving care in room [] Pre-surgical visit [] Trauma [] Long length of stay [] ICU visit [] Other: Relational/Emotional Strength [] Patient feels connected with others/family/visitors/staff [] Distress [] Loneliness/isolation [] Abandonment Spirituality of Patient [x] Person of Radha [] Attends Spiritism of their Radha [] Believes in Prayer [] Reads Bible or Druze materials [] There are Spiritual issues to be addressed Slasher Tender Helper Interventions x] Prayer [x] Active listening [] Non-anxious presence [] Spiritual/emotional support [] Crisis/trauma care [] Spiritual counseling [] Bereavement support [] Provided bereavement packet [] Provided Bible/devotional materials [] Provided toy/stuffed animal, coloring book to patient or family member [] Provided Communion [] Anointing/Katy [] Salvation [] Completed spiritual assessment [] Other: Impact on Illness or Injury [] Angry [] Fearful [] Anxious [] Often cries [] Exhaustion [] Unable to work [] Unable to attend denominational [] Unable to walk/stand [] Unable to read [] Unable to drive [] Unable to eat/drink [] Unable to sleep [] Unable to be with family [] Patient intubated [] Other: Summary Time spent with patient 10 min
[2020-10-22 11:04] VITALS: BP 152/68; PULSE 83; RESP 18; TEMP 36.6; O2SAT 97
--- NOTE | 2020-10-22 14:14 | XRR_ITS ---
NOTE: Order was edited. Original signature date/time was 10/22/20 1527 PROCEDURE INFORMATION: Exam: XR Bilateral Hips with Pelvis when Performed Exam date and time: 10/22/2020 3:03 PM Age: 85 years old Clinical indication: Hip pain; Bilateral; Additional info: Hip pain S/P fall TECHNIQUE: Imaging protocol: XR bilateral hips with pelvis when performed. Views: AP pelvis, bilateral coned frogleg oblique views of the bilateral hips, 3 views. COMPARISON: CT Abdomen/Pelvis Renal [id number] 11/09/2017 2:47 PM FINDINGS: Tubes, catheters and devices: The urinary bladder is drained by a Jennings catheter. Bones/joints: Left proximal femoral bipolar hip replacement. No acute fracture. Soft tissues: Unremarkable. Organs: Excreted contrast is present in the urinary bladder. MTD XR/XR hip BI 2V wo/w pel [id number] IMPRESSION: 1. Postoperative changes as above. 2. No acute bony or hardware injury identified.
[2020-10-22 15:06] VITALS: BP 136/63; PULSE 94; RESP 18; TEMP 36.4; O2SAT 97
--- NOTE | 2020-10-22 19:16 | PM.PN ---
Subjective Subjective: Interval history: No acute events overnight. Patient is complaining of left hip pain after fall. Vitals and labs have been reviewed. Medications: Reviewed: Yes Vitals/I&O/Wt Last Vital Signs Temp 97.6 F 10/22/20 15:06 Pulse 94 10/22/20 15:06 Resp 18 10/22/20 15:06 BP 136/63 10/22/20 15:06 Pulse Ox 97 10/22/20 15:06 10/22/20 10/22/20 10/22/20 06:59 14:59 22:59 Intake Total 300 / 656 480 / 480 Output Total 900 / 2100 1000 / 1000 Balance -600 / -1444 -520 / -520 Weight last 48 hrs Weight 70.307 kg Physical Exam Const: COMMON NORMALS: patient oriented x3 HENMT: COMMON NORMALS: normocephalic and atraumatic HEAD & SCALP: normocephalic and atraumatic Chest: COMMONS NORMALS: normal inspection of the chest and normal palpation of entire chest wall CHEST: Yes Symmetrical chest wall rise Resp: COMMON NORMALS: normal respiratory effort, No retractions, No use of accessory muscles and clear to auscultation bilaterally EFFORT & INSPECTION: Yes symmetric chest movement AUSCULTATION: clear to auscultation bilaterally Cardio: COMMON NORMALS: regular rate, regular rhythm, S1 normal heart sound present, S2 normal heart sound present, No gallops present (Cardio), No murmurs present (Cardio), No rub (Cardio) and Peripheral pulses 2+ throughout RATE: regular rate RHYTHM: regular rhythm HEART SOUNDS: S1 normal heart sound present and S2 normal heart sound present PERIPHERAL PULSES: Peripheral pulses 2+ throughout GI: COMMON NORMALS: Normal to inspection, nondistended, normoactive bowel sounds present, Soft to palpation, non-tender, No hepatosplenomegaly present and no masses AUSCULTATION: Yes normoactive bowel sounds PALPATION: Yes Soft to palpation and Yes No hepatosplenomegaly present RECTAL EXAM: Yes deferred Extremity: COMMON NORMALS: no clubbing, cyanosis or edema and no pedal edema OTHER: Proximal humerus : Mild Tenderness : No tenderness remaining ipsilateral extremity bones/joints Digits: Fully extends digits and thumb, clenched fist complete Sensation: Intact to light touch Motor exam: Flexes and extends ulnar 4 digits, extends and opposes thumb, dorsiflexes and palmarflexes wrist, flexes and extends elbow, abducts shoulder Neuro: COMMON NORMALS: patient oriented x3 Urinary Catheter Management^: Jennings: Cath Placed During This Visit: yes Reason for Continuing Indwelling Catheter: Acute Urinary Retention or Obstruction Urinary Catheter Date of Insertion: 10/21/20 Data : 10/22/20 04:31 10/22/20 04:31 A&P Assessment and plan (1) Hypoxia: Status: Acute (2) Leukocytosis: Likely reactive : Resolving Status: Acute (3) Fracture, humerus: Status: Acute Qualifiers: Encounter type: initial encounter Fracture alignment: displaced Fracture type: closed Humerus Location: proximal Laterality: left (4) Fall: Status: Acute Qualifiers: Encounter type: initial encounter Qualified Code(s): W19.XXXA - Unspecified fall, initial encounter (5) BPH with obstruction/lower urinary tract symptoms: Status: Acute (6) Elevated d-dimer: Status: Acute (7) Hypokalemia: kcl 40 meq one time dose. Monitor BMP Status: Acute (8) Hyponatremia: Status: Acute Additional A&P Information # Left humeral neck fracture His fall is most likely secondary to orthostasis with recent increase in tamsulosin for BPH Orthopedic surgery consult: Sling Placed for 12 weeks.Repeat xary chest in 2 weeks and follow ortho as outpatient. Morphine for analgesia Social service consult for long-term senior living place as patient lives alone and will not be able to take care of himself #Chronic Constipation: Continue Miralex as as docusate. Elevated D-dimer : CTA chest with contrast : No P.E #Left Hip pain: Xray hip no fracture. PT/OT Goals of care status: Discussed with the patient he is DNR/DNI, patient stated he does not want to be on any kind of life support or tubing his children live in [place], he would like his son Kael to be notified DVT prophylaxis :Lovenox 40 mg sc daily Attestations Medical Necessity Statement*: Patient needs to be in hospital for evalaution of Elevated Ddimer, lt hip pain, Hypoxia, unable to take care of himself at home. Will have to get PT/OT on board.Will possibly need placement. 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
[2020-10-22 20:00] VITALS: BP 136/56; PULSE 91; RESP 17; TEMP 36.4; O2SAT 90
[2020-10-22] MEDS: potassium chloride ER 20 mEq Tablet 40 MEQ PO (21:16)
[2020-10-22 23:59] VITALS: BP 157/73; PULSE 80; RESP 17; TEMP 37.6; O2SAT 93
[2020-10-23] MEDS: dextrose 5%-sod chloride 0.45% 1,000 ML 30 ML IV (02:13)
[2020-10-23 04:00] VITALS: BP 147/69; PULSE 78; RESP 17; TEMP 37.5; O2SAT 91
--- NOTE | 2020-10-23 05:10 | PC.NURSE ---
SHIFT SUMMARY Has done well tonight. Appeared to rest well. Did say he doesn't rest as well as when he takes his Melatonin at night. Talking about going to SNF for rehab so he can get back home. Is motivated to do therapy. Left arm in immobilizer/sling. Upper arm/shoulder area is very bruised and edematous. Says hurts when he moves. Also with c/o left hip pain with wt bearing. Has declined offer of pain med. Large urine output via Jennings. Is wondering when he can get it out. IV infusing at 30ml/hr rate.
[2020-10-23 05:35] LABS: Basophils # 0.1 10^3/uL (0.0-0.1); Basophils % 0.5 %; Eosinophils # 0.3 10^3/uL (0.0-0.8); Eosinophils % 2.7 %; Hematocrit 31.5 % (42.0-52.0); Lymphocytes # 0.8 10^3/uL (0.8-4.8); Lymphocytes % 7.8 %; Mean Corpuscular HGB Conc 31.7 g/dL (30.0-36.0); Mean Corpuscular Hemoglobin 27.4 pg (28.0-34.0); Mean Corpuscular Volume 86.3 fL (80-94); Mean Platelet Volume 10.1 fL (7.4-10.4); Monocytes % 9.7 %; Neutrophils # 8.13 10^3/uL (1.8-7.7); Neutrophils % 78.8 %; Nucleated Red Blood Cells % 0 %; Platelet Count 190 10^3/cmm (130-400); Red Blood Count 3.65 10^6/uL (4.1-5.3); Red Cell Distribution Width 13.7 % (12.1-15.1); White Blood Count 10.3 10^3/uL (4.0-10.0)
[2020-10-23 06:02] LABS: Anion Gap 12.8 (5-19); Blood Urea Nitrogen 11 mg/dL (8-23); Calcium 8.8 mg/dL (8.5-10.5); Carbon Dioxide 28 mmol/L (22-29); Chloride 95 mmol/L (98-107); Glucose 101 mg/dL (65-115); Osmolality Calculated 274 mOsm/kg (285-295); Potassium 3.8 mmol/L (3.5-5.1); Sodium 132 mmol/L (136-145)
[2020-10-23 07:22] VITALS: BP 167/76; PULSE 78; RESP 16; TEMP 37.2; O2SAT 92
[2020-10-23] MEDS: polyethylene glycol 3350 Pkt 17 gm PO (09:50)
[2020-10-23] MEDS: docusate sodium 100 mg Capsule PO ×2 (09:50)
[2020-10-23] MEDS: amlodipine 5 mg Tablet PO (09:50)
[2020-10-23] MEDS: lisinopril 20 mg Tablet 40 MG PO (09:50)
[2020-10-23] MEDS: famotidine 20 mg Tablet PO ×2 (09:50→17:53)
[2020-10-23] MEDS: hydroCHLOROthiazide 25 mg Tablet PO (09:50)
[2020-10-23] MEDS: finasteride 5 mg Tablet PO (09:50)
[2020-10-23] MEDS: tamsulosin 0.4 mg Capsule PO (09:50)
[2020-10-23 11:31] VITALS: BP 162/73; PULSE 78; RESP 17; TEMP 37.3; O2SAT 94
--- NOTE | 2020-10-23 14:17 | PM.PN ---
Subjective Subjective: Interval history: Mr Rene is having low grade tem spike : 100.1. Currently he is complaining of hip pain. Xray hip was done which has failed to show any acute pathology. Will work him for possible infection. Medications: Reviewed: Yes Vitals/I&O/Wt Last Vital Signs Temp 99.1 F 10/23/20 11:31 Pulse 78 10/23/20 11:31 Resp 17 10/23/20 11:31 BP 162/73 10/23/20 11:31 Pulse Ox 94 10/23/20 11:31 10/22/20 10/23/20 10/23/20 22:59 06:59 14:59 Intake Total 120 / 600 1400 / 2000 600 / 600 Output Total 1825 / 2825 Balance 120 / -400 -425 / -825 600 / 600 Physical Exam Narrative: EXAM NARRATIVE: Alert and awake HENMT: COMMON NORMALS: normocephalic and atraumatic HEAD & SCALP: normocephalic and atraumatic Chest: CHEST: Yes Symmetrical chest wall rise Resp: COMMON NORMALS: No retractions and clear to auscultation bilaterally EFFORT & INSPECTION: Yes symmetric chest movement AUSCULTATION: clear to auscultation bilaterally Cardio: COMMON NORMALS: regular rate, regular rhythm, S1 normal heart sound present and S2 normal heart sound present RATE: regular rate RHYTHM: regular rhythm HEART SOUNDS: S1 normal heart sound present and S2 normal heart sound present GI: COMMON NORMALS: Normal to inspection, nondistended, normoactive bowel sounds present, Soft to palpation, non-tender, No hepatosplenomegaly present and no masses AUSCULTATION: Yes normoactive bowel sounds PALPATION: Yes Soft to palpation and Yes No hepatosplenomegaly present RECTAL EXAM: Yes deferred Extremity: COMMON NORMALS: no clubbing, cyanosis or edema and no pedal edema Urinary Catheter Management^: Jennings: Cath Placed During This Visit: yes Reason for Continuing Indwelling Catheter: Acute Urinary Retention or Obstruction Urinary Catheter Date of Insertion: 10/21/20 Data : 10/23/20 04:42 10/23/20 04:42 A&P Assessment and plan (1) Leukocytosis: Garcia Culture,lactic acid ,procal,u/a Empiric Cef 1gm q24h daily. Status: Acute (2) Anemia: Normocytic Anemia Anemia Panel Serum B12 Level,Folic acid level Monitor CBC Status: Acute (3) Elevated d-dimer: CTA No evidence of P.E likely inflammation induced. Status: Acute (4) Proximal humerus fracture: Orthopedic surgery consult: Sling Placed for 12 weeks.Repeat xary chest in 2 weeks and follow ortho as outpatient. Status: Acute (5) Hyponatremia: Encourage oral intake. Monitor BMP Status: Acute Attestations Medical Necessity Statement*: Patient needs to be in hospital for the evaluation of leukocytosis and HYpoxia, he will also need placement.Given his inability to take care of himself and staying alone. 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
[2020-10-23 15:28] VITALS: BP 129/67; PULSE 78; RESP 16; TEMP 37.8; O2SAT 98
[2020-10-23 19:13] VITALS: BP 133/66; PULSE 85; RESP 17; TEMP 37.8; O2SAT 98
[2020-10-23] MEDS: NON-FORMULARY MEDICATION (Melatonin 10 mg capsule) 10 EACH PO (20:55)
[2020-10-23] MEDS: acetaminophen 500 mg Tablet PO (20:55)
[2020-10-23] MEDS: cefTRIAXone 1,000 MG in sodium chloride 0.9% (plus) 50 ML 100 MG IV (23:57)
[2020-10-24] VITALS: BP 143/60; PULSE 63; RESP 22; TEMP 36.7; O2SAT 95
[2020-10-24 04:00] VITALS: BP 165/71; PULSE 70; RESP 16; TEMP 36.7; O2SAT 99
[2020-10-24 05:42] LABS: Add Urine Microscopic? YES; Bilirubin Urine Neg (Negative); Blood Urine 2+ (Negative); Glucose Urine UA Norm (Normal); Ketones Urine Negative (Negative); Leukocyte Esterase Urine 2+ (Negative); Nitrate Urine Negative (Negative); Protein Urine Neg (Negative); Specific Gravity, Urine 1.005 (1.005-1.030); Urine Color Yellow (Yellow); Urobilinogen Urine Norm (Negative); pH Urine 7 (5-7)
[2020-10-24 05:49] LABS: Basophils # 0.1 10^3/uL (0.0-0.1); Basophils % 0.8 %; Eosinophils # 0.3 10^3/uL (0.0-0.8); Eosinophils % 3.7 %; Hematocrit 30.6 % (42.0-52.0); Hemoglobin 9.6 g/dL (11.7-16.6); Lymphocytes # 0.8 10^3/uL (0.8-4.8); Lymphocytes % 9.8 %; Mean Corpuscular HGB Conc 31.4 g/dL (30.0-36.0); Mean Corpuscular Hemoglobin 27.4 pg (28.0-34.0); Mean Corpuscular Volume 87.4 fL (80-94); Mean Platelet Volume 9.8 fL (7.4-10.4); Monocytes # 0.8 10^3/uL (0.2-0.9); Monocytes % 9.7 %; Neutrophils # 5.91 10^3/uL (1.8-7.7); Neutrophils % 75.4 %; Nucleated Red Blood Cells % 0 %; Platelet Count 192 10^3/cmm (130-400); Red Cell Distribution Width 13.8 % (12.1-15.1); White Blood Count 7.8 10^3/uL (4.0-10.0)
[2020-10-24 06:14] LABS: Lactate (Lactic Acid level) 0.7 mmol/L (0.5-2.2)
[2020-10-24 06:15] LABS: Add Urine Culture? Yes; Bacteria Urine 2+ /hpf; Squamous Epithelial Cell Urine 0-4 /hpf (0-5)
[2020-10-24 06:22] LABS: Procalcitonin 0.09 ng/mL (0-0.5)
[2020-10-24 06:35] LABS: Anion Gap 11.7 (5-19); Blood Urea Nitrogen 11 mg/dL (8-23); Calcium 8.5 mg/dL (8.5-10.5); Carbon Dioxide 28 mmol/L (22-29); Chloride 98 mmol/L (98-107); Glucose 119 mg/dL (65-115); Osmolality Calculated 279 mOsm/kg (285-295); Potassium 3.7 mmol/L (3.5-5.1); Sodium 134 mmol/L (136-145)
[2020-10-24 07:28] VITALS: BP 126/69; PULSE 67; RESP 18; TEMP 36.7; O2SAT 97
[2020-10-24] MEDS: hydroCHLOROthiazide 25 mg Tablet PO (08:48)
[2020-10-24] MEDS: finasteride 5 mg Tablet PO (08:48)
[2020-10-24] MEDS: famotidine 20 mg Tablet PO ×2 (08:48→18:13)
[2020-10-24] MEDS: lisinopril 20 mg Tablet 40 MG PO (08:48)
[2020-10-24] MEDS: amlodipine 5 mg Tablet PO (08:48)
[2020-10-24] MEDS: tamsulosin 0.4 mg Capsule PO (08:49)
[2020-10-24 12:00] VITALS: BP 126/67; PULSE 73; RESP 17; TEMP 36.4; O2SAT 96
--- NOTE | 2020-10-24 13:11 | P.PN_ITS ---
Subjective Subjective: Interval history: is complaining difficulty walking.As well as pain on the outer upper thigh,particularly with movement. He also had T max of 100.1 Yesterday. Medications: Reviewed: Yes Vitals/I&O/Wt Last Vital Signs Temp 98.0 F 10/24/20 07:28 Pulse 67 10/24/20 07:28 Resp 18 10/24/20 07:28 BP 126/69 10/24/20 07:28 Pulse Ox 97 10/24/20 07:28 10/23/20 10/24/20 10/24/20 22:59 06:59 14:59 Intake Total 240 / 840 240 / 240 Output Total 1000 / 1000 1500 / 2500 Balance -760 / -160 -1500 / -1660 240 / 240 Physical Exam Narrative: EXAM NARRATIVE: Alert and awake. HENMT: COMMON NORMALS: normocephalic and atraumatic HEAD & SCALP: normocephalic and atraumatic Chest: COMMONS NORMALS: normal inspection of the chest CHEST: Yes Symmetrical chest wall rise Resp: COMMON NORMALS: normal respiratory effort and clear to auscultation bilaterally EFFORT & INSPECTION: Yes symmetric chest movement AUSCULTATION: clear to auscultation bilaterally Cardio: COMMON NORMALS: regular rate, regular rhythm, S1 normal heart sound present, S2 normal heart sound present, No gallops present (Cardio), No murmurs present (Cardio), No rub (Cardio) and Peripheral pulses 2+ throughout RATE: regular rate RHYTHM: regular rhythm HEART SOUNDS: S1 normal heart sound present and S2 normal heart sound present PERIPHERAL PULSES: Peripheral pulses 2+ throughout GI: COMMON NORMALS: Normal to inspection, nondistended, normoactive bowel sounds present, Soft to palpation, non-tender, No hepatosplenomegaly present and no masses AUSCULTATION: Yes normoactive bowel sounds PALPATION: Yes Soft to palpation and Yes No hepatosplenomegaly present RECTAL EXAM: Yes deferred Urinary Catheter Management^: Jennings: Cath Placed During This Visit: yes Reason for Continuing Indwelling Catheter: Acute Urinary Retention or Obstruction Urinary Catheter Date of Insertion: 10/21/20 Data : 10/24/20 05:31 10/24/20 05:31 A&P Assessment and plan (1) UTI (urinary tract infection): Continue Cef 1 gm q24h I.V Daily Status: Acute (2) Leukocytosis: Garcia Culture: lactic acid:0.7 procal:0.99 u/a:Dirty Continue : Cef 1gm q24h daily. Status: Acute (3) Anemia: Normocytic Anemia Anemia Panel Serum B12 Level,Folic acid level Monitor CBC Status: Acute (4) Elevated d-dimer: CTA No evidence of P.E likely inflammation induced. Status: Acute (5) Proximal humerus fracture: Orthopedic surgery consult: Sling Placed for 12 weeks.Repeat xary chest in 2 weeks and follow ortho as outpatient. Status: Acute (6) Hyponatremia: Encourage oral intake. Monitor BMP Status: Acute Additional A&P Information # Left humeral neck fracture His fall is most likely secondary to orthostasis with recent increase in tamsulosin for BPH Orthopedic surgery consult: Sling Placed for 12 weeks.Repeat xary chest in 2 weeks and follow ortho as outpatient. Morphine for analgesia Social service consult for long-term shelter place as patient lives alone and will not be able to take care of himself #Chronic Constipation: Continue Miralex as as docusate. Elevated D-dimer : CTA chest with contrast : No P.E #Left Hip pain: Xray hip no fracture. PT/OT Goals of care status: Discussed with the patient he is DNR/DNI, patient stated he does not want to be on any kind of life support or tubing his children live in [place], he would like his son Kael to be notified DVT prophylaxis :Lovenox 40 mg sc daily Attestations Medical Necessity Statement*: Patient needs to be in hospital for the management of UTI,as well as need placement to SNF. 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
--- NOTE | 2020-10-24 14:50 | PC.SOCIAL ---
IMM Page 2 of IMM explained to patient. Initialed, dated, and timed and placed in chart. Copy provided to patient.
[2020-10-24 16:00] VITALS: BP 134/68; PULSE 74; RESP 18; TEMP 36.8; O2SAT 96
[2020-10-24] MEDS: dextrose 5%-sod chloride 0.45% 1,000 ML 30 ML IV (18:11)
--- NOTE | 2020-10-24 19:00 | PC.NURSE ---
SHIFT SUMMARY NO CHANGES THIS SHIFT. PT HAS BEEN ANXIOUS ABOUT MELATONIN AND ABOUT HIS DISCHARGE TO LONGTERM. 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 NO OTHER CHANGES THIS SHIFT.
[2020-10-24 20:00] VITALS: BP 146/70; PULSE 77; RESP 24; TEMP 36.8; O2SAT 95
[2020-10-24] MEDS: NON-FORMULARY MEDICATION (Melatonin 10 mg capsule) 10 EACH PO (20:58)
[2020-10-24] MEDS: cefTRIAXone 1,000 MG in sodium chloride 0.9% (plus) 50 ML 100 MG IV (23:17)
[2020-10-24] MEDS: ALPRAZolam 0.5 mg Tablet PO (23:50)
[2020-10-25] VITALS: BP 122/70; PULSE 64; RESP 18; TEMP 36.7; O2SAT 96
[2020-10-25 03:47] VITALS: BP 128/69; PULSE 62; RESP 20; TEMP 36.8; O2SAT 96
--- NOTE | 2020-10-25 06:31 | PC.NURSE ---
SHIFT SUMMARY Has rested well tonight. c/o inability to sleep early even after receiving po Melatonin that he says usually works. Was given po Xanax and had good response. Good urine output from Jennings. Urine with some mucous strands noted. IV fluids infusing at 30ml/hr rate and receiving IV antibiotics. Is very [place].
[2020-10-25 08:00] VITALS: BP 138/63; PULSE 66; RESP 16; TEMP 36.6; O2SAT 99
[2020-10-25] MEDS: amlodipine 5 mg Tablet PO (08:49)
[2020-10-25] MEDS: famotidine 20 mg Tablet PO ×2 (08:49→18:04)
[2020-10-25] MEDS: lisinopril 20 mg Tablet 40 MG PO (08:49)
[2020-10-25] MEDS: hydroCHLOROthiazide 25 mg Tablet PO (08:49)
[2020-10-25] MEDS: finasteride 5 mg Tablet PO (08:49)
[2020-10-25] MEDS: tamsulosin 0.4 mg Capsule PO (10:45)
[2020-10-25 12:00] VITALS: BP 124/57; PULSE 68; RESP 18; TEMP 36.5; O2SAT 97
[2020-10-25 12:44] LABS: Basophils # 0.1 10^3/uL (0.0-0.1); Basophils % 0.5 %; Eosinophils # 0.1 10^3/uL (0.0-0.8); Eosinophils % 1.4 %; Hematocrit 34.1 % (42.0-52.0); Hemoglobin 10.3 g/dL (11.7-16.6); Lymphocytes # 0.5 10^3/uL (0.8-4.8); Lymphocytes % 4.7 %; Mean Corpuscular HGB Conc 30.2 g/dL (30.0-36.0); Mean Corpuscular Hemoglobin 27.4 pg (28.0-34.0); Mean Corpuscular Volume 90.7 fL (80-94); Mean Platelet Volume 9.9 fL (7.4-10.4); Monocytes # 0.8 10^3/uL (0.2-0.9); Neutrophils # 8.49 10^3/uL (1.8-7.7); Neutrophils % 84.7 %; Nucleated Red Blood Cells % 0 %; Platelet Count 238 10^3/cmm (130-400); Red Blood Count 3.76 10^6/uL (4.1-5.3); Red Cell Distribution Width 13.6 % (12.1-15.1)
[2020-10-25 13:01] LABS: Anion Gap 13.7 (5-19); Blood Urea Nitrogen 15 mg/dL (8-23); Calcium 8.4 mg/dL (8.5-10.5); Carbon Dioxide 29 mmol/L (22-29); Chloride 95 mmol/L (98-107); Glucose 131 mg/dL (65-115); Osmolality Calculated 281 mOsm/kg (285-295); Potassium 3.7 mmol/L (3.5-5.1); Sodium 134 mmol/L (136-145)
--- NOTE | 2020-10-25 15:21 | P.PN_ITS ---
Subjective Subjective: Interval history: No acute event overnight. Vitals have remained stable . labs have been reviewed. Patient is resting comfortably and was watching T.V. Medications: Reviewed: Yes Vitals/I&O/Wt Last Vital Signs Temp 97.7 F 10/25/20 12:00 Pulse 68 10/25/20 12:00 Resp 18 10/25/20 12:00 BP 124/57 10/25/20 12:00 Pulse Ox 97 10/25/20 12:00 10/25/20 10/25/20 10/25/20 06:59 14:59 22:59 Intake Total 400 / 1735 240 / 240 Output Total 1800 / 2200 800 / 800 Balance -1400 / -465 -560 / -560 Physical Exam Narrative: EXAM NARRATIVE: Alert and awake. HENMT: COMMON NORMALS: normocephalic and atraumatic HEAD & SCALP: normocephalic and atraumatic Resp: COMMON NORMALS: clear to auscultation bilaterally EFFORT & INSPECTION: Yes symmetric chest movement AUSCULTATION: clear to auscultation bilaterally Cardio: COMMON NORMALS: regular rate, regular rhythm, S1 normal heart sound present, S2 normal heart sound present, No gallops present (Cardio), No murmurs present (Cardio), No rub (Cardio) and Peripheral pulses 2+ throughout RATE: regular rate RHYTHM: regular rhythm HEART SOUNDS: S1 normal heart sound present and S2 normal heart sound present PERIPHERAL PULSES: Peripheral pulses 2+ throughout GI: COMMON NORMALS: Normal to inspection, nondistended, normoactive bowel sounds present, Soft to palpation, non-tender, No hepatosplenomegaly present and no masses AUSCULTATION: Yes normoactive bowel sounds PALPATION: Yes Soft to palpation and Yes No hepatosplenomegaly present RECTAL EXAM: Yes deferred Extremity: OTHER: Lt upper extremity: Proximal humerus : No tenderness remaining ipsilateral extremity bones/joints Digits: Fully extends digits and thumb, clenched fist complete Sensation: Intact to light touch Motor exam: Flexes and extends ulnar 4 digits, extends and opposes thumb, dorsiflexes and palmarflexes wrist, flexes and extends elbow, abducts shoulder Urinary Catheter Management^: Jennings: Cath Placed During This Visit: yes Reason for Continuing Indwelling Catheter: Acute Urinary Retention or Obstruction Urinary Catheter Date of Insertion: 10/21/20 Data : 10/25/20 12:18 10/25/20 12:18 Micro: Microbiology 10/24/20 04:57 Urine Culture - Preliminary Urine,Clean Catch Gram Negative Rods 10/24/20 15:20 Blood Culture - Preliminary Blood SPECIMEN COLLECTED 10/24/20 15:20 Blood Culture - Preliminary Blood SPECIMEN COLLECTED A&P Assessment and plan (1) UTI (urinary tract infection): Continue Cef 1 gm q24h I.V Daily Status: Acute (2) Leukocytosis: Blood Culture:NTD Urine Culture : GNR : Pending Identification lactic acid:0.7 procal:0.99 Continue : Cef 1gm q24h daily. Status: Acute (3) Anemia: Normocytic Anemia Anemia Panel Serum B12 Level,Folic acid level Monitor CBC Status: Acute (4) Elevated d-dimer: CTA No evidence of P.E likely inflammation induced. Status: Acute (5) Proximal humerus fracture: Orthopedic surgery consult: Sling Placed for 12 weeks.Repeat xary chest in 2 weeks and follow ortho as outpatient. Status: Acute (6) Hyponatremia: Encourage oral intake. Monitor BMP Status: Acute Additional A&P Information # Left humeral neck fracture His fall is most likely secondary to orthostasis with recent increase in tamsulosin for BPH Orthopedic surgery consult: Sling Placed for 12 weeks.Repeat xary chest in 2 weeks and follow ortho as outpatient. Morphine for analgesia Social service consult for long-term halfway place as patient lives alone and will not be able to take care of himself #Chronic Constipation: Continue Miralex as as docusate. Elevated D-dimer : CTA chest with contrast : No P.E #Left Hip pain: Xray hip no fracture. PT/OT Goals of care status: Discussed with the patient he is DNR/DNI, patient stated he does not want to be on any kind of life support or tubing his children live in [place], he would like his son Kael to be notified DVT prophylaxis :Lovenox 40 mg sc daily Code Status :AND Disposition : [facility] Attestations Medical Necessity Statement*: Patient needs to be in hospital for the management of UTI. 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
[2020-10-25 16:00] VITALS: BP 124/56; PULSE 75; RESP 16; TEMP 36.7; O2SAT 94
[2020-10-25] MEDS: docusate sodium 100 mg Capsule PO (18:05)
[2020-10-25 20:31] VITALS: BP 130/61; PULSE 77; RESP 17; TEMP 36.6; O2SAT 97
[2020-10-25] MEDS: NON-FORMULARY MEDICATION (Melatonin 10 mg capsule) 10 EACH PO (20:54)
[2020-10-25] MEDS: cefTRIAXone 1,000 MG in sodium chloride 0.9% (plus) 50 ML 100 MG IV (23:04)
[2020-10-26] VITALS (7 sets, daily range): BP systolic 119–150; BP diastolic 54–73; PULSE 67–79; RESP 16–18; TEMP 36.4–37.2; O2SAT 94–97
--- NOTE | 2020-10-26 05:52 | PC.NURSE ---
SHIFT SUMMARY Has restedd well tonight. Continues to be impatient for things. Had gotten woke up around 0300 and was requesting something for sleep. Was told we don't usually medicate that late for sleep due to being sleepy all day but just caused him to be anxious. Went ahead and was going to give the Xanax but then when med taken to room he decided he didn't think it was a good idea to take it. Asks if it is addictive and was reassured not for just occ dosing while in the hospital but still refused med. Returned to sleep without the med. Good urine output and urine appears to be clearing. Left arm remains very bruised & edematous. Sling/immobilizer in place. Neurovascular check WNL. IV infusing without difficulty at 30ml/hr rate
[2020-10-26] MEDS: lisinopril 20 mg Tablet 40 MG PO (08:03)
[2020-10-26] MEDS: hydroCHLOROthiazide 25 mg Tablet PO (08:03)
[2020-10-26] MEDS: finasteride 5 mg Tablet PO (08:03)
[2020-10-26] MEDS: amlodipine 5 mg Tablet PO (08:03)
[2020-10-26] MEDS: tamsulosin 0.4 mg Capsule PO (08:03)
[2020-10-26] MEDS: famotidine 20 mg Tablet PO ×2 (08:04→17:48)
[2020-10-26] MEDS: docusate sodium 100 mg Capsule PO ×2 (08:04→17:48)
[2020-10-26] MEDS: dextrose 5%-sod chloride 0.45% 1,000 ML 30 ML IV (10:37)
--- NOTE | 2020-10-26 10:49 | PC.SOCIAL ---
IMM Update Pg. 2 of IMM updated and copy provided to patient.
--- NOTE | 2020-10-26 14:42 | P.PN_ITS ---
Subjective Subjective: Interval history: Ms Rene is resting Comfortably in bed. Vitals have been stable. Labs have been reviewed. Vitals/I&O/Wt Last Vital Signs Temp 97.5 F L 10/26/20 11:03 Pulse 78 10/26/20 11:03 Resp 16 10/26/20 11:03 BP 119/65 10/26/20 11:03 Pulse Ox 96 10/26/20 11:03 10/25/20 10/26/20 10/26/20 22:59 06:59 14:59 Intake Total 360 / 840 1350 / 2190 460 / 460 Output Total 1100 / 2500 850 / 3350 Balance -740 / -1660 500 / -1160 460 / 460 Physical Exam Narrative: EXAM NARRATIVE: EXAM NARRATIVE: Alert and awake. HENMT COMMON NORMALS: normocephalic and atraumatic HEAD & SCALP: normocephalic and atraumatic Resp COMMON NORMALS: clear to auscultation bilaterally EFFORT & INSPECTION: Yes symmetric chest movement AUSCULTATION: clear to auscultation bilaterally Cardio COMMON NORMALS: regular rate, regular rhythm, S1 normal heart sound present, S2 normal heart sound present, No gallops present (Cardio), No murmurs present (Cardio), No rub (Cardio) and Peripheral pulses 2+ throughout RATE: regular rate RHYTHM: regular rhythm HEART SOUNDS: S1 normal heart sound present and S2 normal heart sound present PERIPHERAL PULSES: Peripheral pulses 2+ throughout GI COMMON NORMALS: Normal to inspection, nondistended, normoactive bowel sounds present, Soft to palpation, non-tender, No hepatosplenomegaly present and no masses AUSCULTATION: Yes normoactive bowel sounds PALPATION: Yes Soft to palpation and Yes No hepatosplenomegaly present RECTAL EXAM: Yes deferred Extremity OTHER: Lt upper extremity: Proximal humerus : No tenderness remaining ipsilateral extremity bones/joints Digits: Fully extends digits and thumb, clenched fist complete Sensation: Intact to light touch Motor exam: Flexes and extends ulnar 4 digits, extends and opposes thumb, dorsiflexes and palmarflexes wrist, flexes and extends elbow, abducts shoulder Urinary Catheter Management^: Jennings: Cath Placed During This Visit: yes Reason for Continuing Indwelling Catheter: Acute Urinary Retention or Obstruction Urinary Catheter Date of Insertion: 10/21/20 Data : 10/25/20 12:18 10/25/20 12:18 Micro: Microbiology 10/24/20 04:57 Urine Culture - Final Urine,Clean Catch Citrobacter koseri 10/24/20 15:20 Blood Culture - Preliminary Blood NEGATIVE TO DATE 10/24/20 15:20 Blood Culture - Preliminary Blood NEGATIVE TO DATE A&P Assessment and plan (1) UTI (urinary tract infection): Status: Acute (2) Fracture, humerus: Status: Acute Qualifiers: Encounter type: initial encounter Fracture alignment: displaced Fracture type: closed Humerus Location: proximal Laterality: left (3) Fall: Status: Acute Qualifiers: Encounter type: initial encounter Qualified Code(s): W19.XXXA - Unspecified fall, initial encounter (4) Hypoxia: Status: Acute (5) BPH with obstruction/lower urinary tract symptoms: Status: Acute (6) Hypertension: Status: Acute Additional A&P Information #UTI Continue Cef 1 gm q24 h daily Urine culture :Citrobacter Koseri : Sensitive to Cef 1 gm q24 h daily ( DAY 3 ) Plan is dc him on Augmentin 500 mg /125 mg po q12 h daily for additional 4 days to complete total 7 days course . # Left humeral neck fracture His fall is most likely secondary to orthostasis with recent increase in tamsulosin for BPH Orthopedic surgery consult: Sling Placed for 12 weeks.Repeat xary chest in 2 weeks and follow ortho as outpatient. Morphine for analgesia Social service consult for long-term [facility] place as patient lives alone and will not be able to take care of himself #Chronic Constipation: Continue Miralex and docusate. Elevated D-dimer : CTA chest with contrast : No P.E #Left Hip pain: Xray hip no fracture. PT/OT Goals of care status: Discussed with the patient he is DNR/DNI, patient stated he does not want to be on any kind of life support or tubing his children live in [place], he would like his son Kael to be notified DVT prophylaxis :Lovenox 40 mg sc daily Code Status :AND Disposition : [facility].On 10/27 Attestations Medical Necessity Statement*: Patient needs to be in hospital for UTI. 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
[2020-10-26] MEDS: acetaminophen 500 mg Tablet PO (20:55)
[2020-10-26] MEDS: NON-FORMULARY MEDICATION (Melatonin 10 mg capsule) 10 EACH PO (20:56)
[2020-10-26] MEDS: cefTRIAXone 1,000 MG in sodium chloride 0.9% (plus) 50 ML 100 MG IV (23:20)
[2020-10-26] MEDS: ALPRAZolam 0.5 mg Tablet PO (23:20)
[2020-10-27 03:18] VITALS: BP 128/70; PULSE 65; RESP 18; TEMP 36.9; O2SAT 96
--- NOTE | 2020-10-27 05:33 | PC.NURSE ---
SHIFT SUMMARY Has rested well tonight. Did take a Xanax tonight for inability to sleep and it appeared to work well. IV infusing at 30ml/hr rate. Continues to receive IV antibiotics. Good urine output from Jennings
[2020-10-27 05:49] LABS: Basophils % 0.5 %; Eosinophils # 0.3 10^3/uL (0.0-0.8); Eosinophils % 4.3 %; Hematocrit 29.7 % (42.0-52.0); Hemoglobin 9.5 g/dL (11.7-16.6); Lymphocytes # 0.9 10^3/uL (0.8-4.8); Lymphocytes % 12.8 %; Mean Corpuscular Hemoglobin 27.9 pg (28.0-34.0); Mean Corpuscular Volume 87.1 fL (80-94); Mean Platelet Volume 9.8 fL (7.4-10.4); Monocytes # 0.9 10^3/uL (0.2-0.9); Monocytes % 11.7 %; Neutrophils # 5.09 10^3/uL (1.8-7.7); Neutrophils % 69.2 %; Nucleated Red Blood Cells % 0 %; Platelet Count 259 10^3/cmm (130-400); Red Blood Count 3.41 10^6/uL (4.1-5.3); Red Cell Distribution Width 13.8 % (12.1-15.1); White Blood Count 7.4 10^3/uL (4.0-10.0)
[2020-10-27 06:32] LABS: Anion Gap 12.1 (5-19); Blood Urea Nitrogen 16 mg/dL (8-23); Calcium 8.8 mg/dL (8.5-10.5); Carbon Dioxide 31 mmol/L (22-29); Chloride 96 mmol/L (98-107); Glucose 103 mg/dL (65-115); Osmolality Calculated 281 mOsm/kg (285-295); Potassium 4.1 mmol/L (3.5-5.1); Sodium 135 mmol/L (136-145)
[2020-10-27 07:35] VITALS: BP 150/74; PULSE 73; RESP 18; TEMP 36.7; O2SAT 93
[2020-10-27] MEDS: docusate sodium 100 mg Capsule PO (08:19)
[2020-10-27] MEDS: famotidine 20 mg Tablet PO (08:19)
[2020-10-27] MEDS: lisinopril 20 mg Tablet 40 MG PO (08:19)
[2020-10-27] MEDS: polyethylene glycol 3350 Pkt 17 gm PO (08:20)
[2020-10-27] MEDS: finasteride 5 mg Tablet PO (08:20)
[2020-10-27] MEDS: amlodipine 5 mg Tablet PO (08:20)
[2020-10-27] MEDS: tamsulosin 0.4 mg Capsule PO (08:20)
[2020-10-27] MEDS: hydroCHLOROthiazide 25 mg Tablet PO (08:20)
[2020-10-27 10:49] VITALS: BP 115/62; PULSE 76; RESP 16; TEMP 36.4; O2SAT 99
--- NOTE | 2020-10-27 12:30 | PC.NURSE ---
Jennings catheter removed intact at this time. IV removed intact at this time. Patient tolerated both well.
--- NOTE | 2020-10-27 12:51 | PM.DCS ---
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 Patient lives alone manages his daily activities on his own without any difficulties has had appointment with Dr. Dee Khan and dermatology for his chronic conditions. Dr. Price is recommending conservative management for macroadenoma pituitary gland, he went for cryotherapy of actinic keratosis, urology increased his tamsulosin dose for obstructive uropathy along with finasteride. On the day of admission when he woke up, tried to go to the bathroom, as soon as he stood up he fell on the ground, he denied seizure-like activities, chest pain, blurry vision, shortness of breath seizure-like activities.He did not lose consciousness.He started experiencing excruciating pain in the left arm was not able to get himself up, called EMS and came to the ER.Imaging studies in the ER revealed left humeral neck fracture for which ortho was consulted and per ortho he has experienced nondisplaced left humeral neck fracture.The plan will be to keep him in a sling going to take approximate 12 weeks to heal. Orthopedic surgeon will recheck an x-ray in the clinic in 2 weeks.He should be nonweightbearing of his left upper extremity.He can do pendulum exercises and gentle range of motion exercises of the elbow wrist and shoulder. He was also complaining of lt lateral thigh pain, xray of Hip was done which showed no Left proximal femoral bipolar hip replacement. No acute fracture. Urine analysis during the hospital stay revealed citrobacter Koseri sensitive to ceftriaxone as well augmentin.He was on I.V ceftriaxone for 4 Days and he being discharged on augmentin po for 7 days to complete the course. On admission he was also hypoxic requiring 2 Ls oxygen via nc and his D dimer was also high.CTA was done which showed no P.E. Head C.T without Contarst was also done which failed to show any acute intcranial pathology. He is being discharged in stable condition and will follow with Orthopedic as outpatient. Physical Exam Narrative: EXAM NARRATIVE: Alert and awake. HENHI COMMON NORMALS: normocephalic and atraumatic HEAD & SCALP: normocephalic and atraumatic Resp COMMON NORMALS: clear to auscultation bilaterally EFFORT & INSPECTION: Yes symmetric chest movement AUSCULTATION: clear to auscultation bilaterally Cardio COMMON NORMALS: regular rate, regular rhythm, S1 normal heart sound present, S2 normal heart sound present, No gallops present (Cardio), No murmurs present (Cardio), No rub (Cardio) and Peripheral pulses 2+ throughout RATE: regular rate RHYTHM: regular rhythm HEART SOUNDS: S1 normal heart sound present and S2 normal heart sound present PERIPHERAL PULSES: Peripheral pulses 2+ throughout GI COMMON NORMALS: Normal to inspection, nondistended, normoactive bowel sounds present, Soft to palpation, non-tender, No hepatosplenomegaly present and no masses AUSCULTATION: Yes normoactive bowel sounds PALPATION: Yes Soft to palpation and Yes No hepatosplenomegaly present RECTAL EXAM: Yes deferred Extremity OTHER: Lt upper extremity: Proximal humerus : No tenderness remaining ipsilateral extremity bones/joints Digits: Fully extends digits and thumb, clenched fist complete Sensation: Intact to light touch Motor exam: Flexes and extends ulnar 4 digits, extends and opposes thumb, dorsiflexes and palmarflexes wrist, flexes and extends elbow, abducts shoulder Urinary Catheter Management^: Jennings: Cath Placed During This Visit: yes Reason for Continuing Indwelling Catheter: Acute Urinary Retention or Obstruction Urinary Catheter Date of Insertion: 10/21/20 Discharge Data Data Completed and Pending: Completed Studies During Hospitalization Category Date Time Status CT angio chest PE protcl [id number] Stat Cat Scan 10/22/20 08:[address] head wo con* 7 0450 Urgent Cat Scan 10/21/20 05:03 Completed XR chest 1V avni ble [id number] Urgent Exams 10/21/20 02:57 Completed XR shoulder LT mi n 2V* [id number] Stat Exams 10/21/20 02:00 Completed Pending at discharge Category Date Time Status Basic Metabolic P amelia AM LABS Lab 10/23/20 04:00 Ordered Basic Metabolic P amelia AM LABS Lab 10/24/20 04:00 Ordered Basic Metabolic P amelia AM LABS Lab 10/25/20 04:00 Ordered Complete Blood Co unt w/Auto AM LABS Lab 10/23/20 04:00 Ordered Complete Blood Co unt w/Auto AM LABS Lab 10/24/20 04:00 Ordered Complete Blood Co unt w/Auto AM LABS Lab 10/25/20 04:00 Ordered Labs from last 24 hours 10/22/20 10/22/20 04:31 04:31 WBC 9.8 RBC 3.86 L Hgb 10.6 L Hct 33.2 L MCV 86.0 MCH 27.5 L MCHC 31.9 RDW 13.6 Plt Count 197 MPV 10.7 H Neut % (Auto) 85.0 Lymph % (Auto) 7.0 [place] % (Auto) 6.7 Eos % (Auto) 0.6 Baso % (Auto) 0.3 Neut # (Auto) 8.34 H Lymph # (Auto) 0.7 L [place] # (Auto) 0.7 Eos # (Auto) 0.1 Baso # (Auto) 0.0 Nucleated RBC % (a uto) 0 Nucleated RBCs # 0.0 Sodium 133 L Potassium 3.4 L Chloride 95 L Carbon Dioxide 30 H Anion Gap 11.4 BUN 12 Creatinine 0.6 L GFR Calculation Not Reportable Glucose 105 Calculated Osmolal ity 276 L Calcium 9.0 Vitals: Last Vital Signs Temp 97.8 F 10/22/20 11:04 Pulse 83 10/22/20 11:04 Resp 18 10/22/20 11:04 BP 152/68 10/22/20 11:04 Pulse Ox 97 10/22/20 11:04 Discharge Plan Discharge Patient Disposition: Home Condition: Stable Prescriptions: [place] 5-325 mg tablet 1 tab PO Q6H PRN (Reason: pain) Qty: 14 RF: 0 Augmentin 500-125 mg tablet 1 tab PO Q12H Qty: 14 RF: 0 Continued tamsulosin [Flomax] 0.4 mg capsule 0.4 mg PO DAILY RF: 0 amlodipine 5 mg tablet 5 mg PO DAILY RF: 0 lisinopril 5 mg tablet 40 mg PO DAILY RF: 0 cholecalciferol (vitamin D3) 25 mcg (1,000 unit) capsule 25 mcg PO DAILY RF: 0 hydrochlorothiazide 25 mg tablet 25 mg PO DAILY RF: 0 finasteride 5 mg tablet 5 mg PO DAILY RF: 0 saw palmetto 450 mg capsule 900 mg PO BID RF: 0 melatonin 10 mg capsule 10 mg PO DAILY RF: 0 famotidine 10 mg Tablet 10 mg PO BID RF: 0 acetaminophen 500 mg Tablet 500 mg PO Q6H PRN (Reason: Pain) RF: 0 cyanocobalamin (vitamin B-12) [Vitamin B-12] 500 mcg Tablet 500 mcg PO DAILY RF: 0 ascorbic acid (vitamin C) 500 mg Tablet 500 mg PO DAILY RF: 0 docusate sodium 100 mg Capsule See Rx Instructions .ROUTE .COMPLEX RF: 0 Discharge Orders: Discharge Order (Routine); Ordered 10/27/20 Ordered By: Juan Carlos Rucker Referrals: Angelic Li MD [Physician] - 11/10/20 3:00 pm ( ) Ghanshyam Martinez MD [Primary Care Provider] - 11/10/20 9:45 am Discharge Diet: Advance as tolerated Discharge Activity: Increase activity as tolerated Patient Instructions: Hydrocodone/Acetaminophen (By mouth), Amoxicillin/Clavulanate Potassium (By mouth), Arm Fracture in Adults (ED), Urinary Tract Infection in Men (GEN) Activity Restrictions/Additional Instructions: Murali will follow with recheck x-ray in the clinic in 2 weeks. ( XR shoulder LT min 2V ) Discharge Attestations Time Spent in Discharge Care*: greater than 30 min Specific Discharge Activities: educating patient, educating and/or supporting family/caregiver, discussing with manager of case management/social workers/dc planners, documenting/other paperwork and evaluating patient/reviewing data Status at Discharge: Cognitive status at discharge: cognitively intact, Behavioral status at discharge: cooperative, Functional status at discharge: other assisted ambulation Overall status at discharge: patient is back to baseline Quality Metrics Clinical Quality Measures During this hospital stay, did patient experience: None Coding Level of Care Code Acute Press Assistant And Feeder for Chg Fwd Diagnoses UTI (urinary tract infection) N39.0 Fracture, humerus S42.309A Encounter type: initial encounter Fracture alignment: displaced Fracture type: closed Humerus Location: proximal Laterality: left BPH with obstruction/lower urinary tract symptoms N40.1; N13.8 Hypoxia R09.02
--- NOTE | 2020-10-27 12:51 | PC.NURSE ---
Report called to Hailee BABB at [facility] at this time.
--- NOTE | 2020-10-27 13:00 | PC.NURSE ---
Patient discharged to the long term at this time. Patient's home medications were discharged with patient along with a phone number that the patient requested. Patient is A&Ox3. Respirations even and non-labored on room air. Patient has sling and swath in place on left arm.
[2020-10-27 14:32] VITALS: BP 115/62; PULSE 76; RESP 16; TEMP 36.4; O2SAT 95
== END 2020-10-27 13:00 | disposition home or self-care (01) | DRG 562 ==
LOC: ER 05:02 → ER IP 09:26 → MEDSURG 12:27
PROVIDERS: Admitting Provider Internal Medicine; Emergency Provider Emergency Medicine; PCP Family Medicine; Visit Provider Internal Medicine
DX: S42.202A Unspecified fracture of upper end of left humerus, initial encounter for closed fracture (principal); J96.01 Acute respiratory failure with hypoxia; N13.8 Other obstructive and reflux uropathy; E87.1 Hypo-osmolality and hyponatremia; N39.0 Urinary tract infection, site not specified; W18.30XA Fall on same level, unspecified, initial encounter; D35.2 Benign neoplasm of pituitary gland; N40.1 Benign prostatic hyperplasia with lower urinary tract symptoms; R33.8 Other retention of urine; E87.6 Hypokalemia; F41.9 Anxiety disorder, unspecified; I10 Essential (primary) hypertension; E78.5 Hyperlipidemia, unspecified; K11.7 Disturbances of salivary secretion; Z96.641 Presence of right artificial hip joint; Z87.891 Personal history of nicotine dependence; K59.00 Constipation, unspecified; D64.9 Anemia, unspecified; M25.551 Pain in right hip; Z66 Do not resuscitate; B96.89 Other specified bacterial agents as the cause of diseases classified elsewhere
CPT/HCPCS: 12345; 36415; 36416; 51702; 70450; 71045; 71275; 73030; 73521; 73522; 80048; 80053; 81001; 82962; 83605; 83880; 84145; 84443; 85025; 85378; 85610; 87040; 87077; 87086; 87186; 87426; 90715; 93005; 97110; 97161; 97530; 99284; J0696; J7030; J7799; Q9967

== ENCOUNTER → 2020-11-10 15:30 | Outpatient (BNVA) | payer OTHER, MEDICARE, SELFPAY | PROVIDERS: PCP Family Medicine; Visit Provider Specialist | DX: S42.202A Unspecified fracture of upper end of left humerus, initial encounter for closed fracture (principal) | CPT/HCPCS: 73030 ==

== ENCOUNTER → 2020-12-01 13:19 | Outpatient (BNVA) | payer OTHER, SELFPAY | PROVIDERS: PCP Family Medicine; Visit Provider Specialist | DX: S42.202A Unspecified fracture of upper end of left humerus, initial encounter for closed fracture (principal); S42.212A Unspecified displaced fracture of surgical neck of left humerus, initial encounter for closed fracture; X58.XXXA Exposure to other specified factors, initial encounter | CPT/HCPCS: 73030 ==